=== PATIENT | male | born 1940 | race Caucasian/White ===

== ENCOUNTER → 2016-12-27 | Outpatient (CLI) | payer MEDICARE ==
--- NOTE | 2016-12-27 13:11 | MR ---
EXAMINATION TYPE: MR knee RT wo con DATE OF EXAM: 12/27/2016 COMPARISON: Plain film dated 12/08/2016 HISTORY: Rt knee pain TECHNIQUE: Multiplanar, multisequence imaging of the right knee is performed without IV contrast. FINDINGS: MEDIAL MENISCUS: Posterior horn of the medial meniscus shows linear increased signal which extends to the articular surface. Anterior horn also shows some linear increased signal which extends to the samia dy, there is pseudoextrusion of the medial meniscus. LATERAL MENISCUS: There is some linear increased signal involving the posterior horn of the lateral m eniscus which is thought to extend to the articular surface medially seen on sagittal image 22 and 23 . CRUCIATE LIGAMENTS: Some increased signal at the insertion of the anterior cruciate ligament could re present a partial tear or mucoid degeneration COLLATERAL LIGAMENTS: Popliteus tendon shows some increased signal associated with its substance, the re is thickening, suggests tendinosis or possibly partial tear. EXTENSOR MECHANISM: Visualized quadriceps and patellar tendons are intact. EFFUSION: Small suprapatellar joint effusion is present. POPLITEAL CYST: Small semimembranosus gastrocnemius cyst is present. TRICOMPARTMENT SPACES: Maintained CARTILAGE: Suspect some cartilage thinning superolaterally at the posterior patella the site of patie nt's lytic focus. Grade 2 to grade III chondromalacia present in the medial compartment. BONE MARROW SIGNAL: Abnormal signal is present in the superior lateral patella, there is a lytic focu s corresponding to that seen on plain film measuring approximately 15 mm in greatest dimension with s ome irregularity of the cortex superolaterally. There is mixed signal which is intermediate on T1, so me high in mixed lower signal present on T2-weighted sequences. OTHER: The origins of the gastrocnemius muscles show some fluid signal present, there may be strain or partial tear. Subcutaneous edema changes are present. IMPRESSION: Findings could be due to gout or possibly giant cell tumor, osteoblastoma. Tear of the medial meniscu s as described. Osteoarthritis may be present. Additional findings above.
== END | disposition home or self-care (01) ==
LOC: RADMRIMAIN 08:35
PROVIDERS: ATTEND Orthopaedic Surgery
DX: S83.241A Other tear of medial meniscus, current injury, right knee, initial encounter (principal)

== ENCOUNTER → 2017-01-07 | Outpatient (CLI) | payer MEDICARE ==
[2017-01-07 11:44] LABS: ALT 66 U/L (21-72); AST 37 U/L (17-59); Alkaline Phosphatase 68 U/L (38-126); Anion Gap 10 mmol/L; Blood Urea Nitrogen 18 mg/dL (9-20); Calcium 9.7 mg/dL (8.4-10.2); Carbon Dioxide 26 mmol/L (22-30); Chloride 104 mmol/L (98-107); Cholesterol 171 mg/dL (<200); Glucose 92 mg/dL (74-99); HDL Cholesterol 41 mg/dL (40-60); Non-African American GFR(MDRD) >60 (>60 ml/min/1.73 sqM); Potassium 4.5 mmol/L (3.5-5.1); Sodium 140 mmol/L (137-145); Total Bilirubin 0.6 mg/dL (0.2-1.3); Total Protein 6.8 g/dL (6.3-8.2); Uric Acid 5.6 mg/dL (3.5-8.5)
[2017-01-07 12:15] LABS: Prostate Specific Antigen 1.17 ng/mL (0.00-4.00)
[2017-01-07 12:25] LABS: Basophils % (A) 1 %; CH 33.9; CHCM 33.8; Eosinophils # (A) 0.2 k/uL (0-0.7); Eosinophils % (A) 4 %; HCT 47.6 % (39.0-53.0); HDW 2.57; Luc # (Auto) 0.21; Luc % (Auto) 4; Lymphocytes # (A) 1.2 k/uL (1.0-4.8); Lymphocytes % (A) 24 %; MCH 33.9 pg (25.0-35.0); MCHC 33.5 g/dL (31.0-37.0); Macrocytosis Slight; Mean Platelet Volume 7.6; Monocytes # (A) 0.4 k/uL (0-1.0); Monocytes % (A) 8 %; Neutrophils # (A) 2.9 k/uL (1.3-7.7); Neutrophils % (A) 59 %; RBC 4.72 m/uL (4.30-5.90); RDW 13.6 % (11.5-15.5); WBC (Perox) 5.29
[2017-01-07 14:07] LABS: Hemoglobin A1C 5.4 % (4.2-6.1)
--- NOTE | 2017-01-07 16:11 | NM ---
EXAMINATION TYPE: NM bone/joint limited DATE OF EXAM: 01/07/2017 COMPARISON: MRI knee dated 12/27/2016 HISTORY: Indeterminate right patellar lesion. TECHNIQUE: After the intravenous administration of 25.5 mCi Tc 99m MDP. Images acquired 3 hours pos t injection. Multiple views of knees are submitted. FINDINGS: There is asymmetric focal radiotracer uptake within the right patella at the previously donovan cribed abnormal area of bone marrow signal within the lateral patella and lytic lesion seen on the pl ain film measuring 15 mm in greatest dimension. This uptake is nonspecific and can be seen in infecti ous etiologies, neoplastic etiologies, or inflammatory etiologies. Additional more mild nonfocal bilateral uptake is seen within the knee joints representing degenerati ve change, likely osteoarthropathy although arthropathy from other causes such as gout are considerat ions. IMPRESSION: Focal asymmetric radiotracer uptake within the right patella which is nonspecific but cor responds to the known lytic lesion. Focal radiotracer uptake in the seen infectious etiologies, neopl astic etiologies, and inflammatory etiologies. Consult with orthopedic oncologist should be considere d with additional consideration for definitive diagnosis with percutaneous tissue sampling.
== END | disposition home or self-care (01) ==
LOC: RADNMMAIN 11:00
PROVIDERS: ATTEND Orthopaedic Surgery
DX: M79.661 Pain in right lower leg (principal); I48.2 Chronic atrial fibrillation; R73.09 Other abnormal glucose; E78.00 Pure hypercholesterolemia, unspecified; N40.0 Benign prostatic hyperplasia without lower urinary tract symptoms; M10.9 Gout, unspecified; Z00.00 Encounter for general adult medical examination without abnormal findings
CPT/HCPCS: 84439; 84153; 80061; 80053; 83036; 84443; 84550; 85025; 78300; 36415; A9503

== ENCOUNTER → 2018-10-30 | Outpatient (CLI) | payer MEDICARE ==
[2018-10-30 11:00] LABS: HGB 15.4 gm/dL (13.0-17.5); MCH 32.3 pg (25.0-35.0); MCHC 33.5 g/dL (31.0-37.0); MCV 96.4 fL (80.0-100.0); Mean Platelet Volume 7.4; Platelet Count 186 k/uL (150-450); RBC 4.77 m/uL (4.30-5.90); RDW 13.3 % (11.5-15.5); WBC 5.9 k/uL (3.8-10.6)
[2018-10-30 11:14] LABS: Potassium 4.1 mmol/L (3.5-5.1)
== END | disposition home or self-care (01) ==
LOC: LABPAT 10:18
PROVIDERS: ATTEND Internal Medicine Clinical Cardiac Electrophysiology
DX: Z01.812 Encounter for preprocedural laboratory examination (principal); I48.0 Paroxysmal atrial fibrillation; I49.5 Sick sinus syndrome
CPT/HCPCS: 36415; 80051; 82565; 82947; 84520; 85027

== ENCOUNTER 2018-11-07 13:39 | Day surgery (SDC) | payer MEDICARE ==
[2018-11-07] MEDS ORDERED: SODIUM CHLORIDE 0.9% 1,000 ML IV SCH (13:54)
[2018-11-07] MEDS ORDERED: LACTATED RINGERS 1,000 ML IV SCH (13:54)
[2018-11-07] MEDS ORDERED: HYDROmorphone 0.5 MG/0.5 ML SYRINGE IVP PRN (13:54)
[2018-11-07] MEDS ORDERED: MIDAZOLAM 2 MG/2 ML VIAL IV PRN (13:54)
[2018-11-07] MEDS ORDERED: ONDANSETRON 4 MG/2 ML VIAL ONE (15:15)
[2018-11-07] MEDS ORDERED: HEPARIN SODIUM,PORCINE 5,000 UNIT/ML 1 ML VIAL ONE (15:15)
[2018-11-07] MEDS ORDERED: ePHEDrine SULFATE/0.9% NACL/PF 50 MG/5 ML SYRINGE IV ONE (15:15)
[2018-11-07] MEDS ORDERED: MIDAZOLAM 2 MG/2 ML VIAL ONE (15:15)
[2018-11-07] MEDS ORDERED: PROTAMINE SULFATE 10 MG/ML 5 ML VIAL IV ONE (15:15)
[2018-11-07] MEDS ORDERED: ISOPROTERENOL 250 MCG/1.25 ML SYR IV ONE (15:15)
[2018-11-07] MEDS ORDERED: PROPOFOL 10 MG/ML 20 ML VIAL IV ONE (15:15)
[2018-11-07] MEDS ORDERED: PHENYLEPHRINE-0.9% NACL SYG 1 MG/10 ML SYRINGE ONE (15:15)
[2018-11-07] MEDS ORDERED: fentaNYL (PF) 50 MCG/ML 2 ML AMP ONE (15:15)
[2018-11-07] MEDS ORDERED: SUCCINYLCHOLINE CHLORIDE 100 MG/5 ML SYR IV ONE (15:15)
[2018-11-07] MEDS ORDERED: LIDOCAINE 1% INJ 10MG/ML (20 ML MDV) SQ ONE ×2 (16:00→16:06)
[2018-11-07] MEDS ORDERED: LIDOCAINE 1% INJ 10MG/ML (20 ML MDV) ONE (16:08)
[2018-11-07] MEDS ORDERED: HEPARIN SOD,PORK IN 0.45% NACL 25,000 UNIT in 0.45% NACL 1 250ML.BAG IV ONE (16:15)
[2018-11-07] MEDS ORDERED: IOPAMIDOL-370 100ML BTL INJ ONE (18:16)
[2018-11-07] MEDS ORDERED: ACETAMINOPHEN IV (For NPO) 1,000 MG in EMPTY BAG 1 BAG IVPB ONE (18:23)
[2018-11-07] MEDS ORDERED: ACETAMINOPHEN TAB 325 MG TAB PO PRN (18:23)
[2018-11-07] MEDS ORDERED: HYDROcodone/APAP 5-325MG 1 EACH TAB PO PRN (18:23)
--- NOTE | 2018-11-07 18:35 | P.HPCAR ---
History of Present Illness This is Dr. Messer dictating a consult on this patient The patient was interviewed and examined by me IMPRESSION / ASSESSMENT: Paroxysmal atrial fibrillation, drug refractory Intolerant of higher doses of flecainide Stable from a cardiac vascular standpoint no medical issues at this time that precludes proceeding with A. fib ablation today Hypertension, well controlled PLAN: Stable from a cardiovascular standpoint to proceed with an A. fib ablation cryoablation Discussed with the patient and he is agreeable to plan HPI Recurrent palpitations despite flecainide The dose of flecainide had to be reduced because of side effects from flecainide 100 mg twice daily initial symptoms no pulmonary symptoms no chest pain dizziness lightheadedness. Continues to have palpitations ROS: No fever chills or rigors, no cough, phlegm or expectoration, no nausea, vomiting or diarrhea, no hematuria, dysuria, no musculoskeletal complaints, no strokes or seizures, no skin lesions. EXAMINATION: Afebrile 98.1F, pulse rate in the 50s blood pressure 144/72 mmHg normal respirations No JVD Breath sounds are clear no rhonchi no crackles Normal heart sounds S1 normal S2 no murmurs. No rub Abdomen soft nontender Extremities are warm no edema REVIEW OF LABS, ECG & MEDICAL DATA Patient is sinus rhythm today irregular rhythm Prior labs within normal limits Physical Exam Vitals: Vital Signs Temp Pulse Resp BP Pulse Ox 11/07/18 14:26 98.1 F 59 L 16 145/72 95 Intake and Output 11/07/18 11/07/18 11/07/18 06:59 14:59 22:59 Intake Total 50 21 Balance 50 21 Intake: IV 50 21 Past Medical History Past Medical History: Atrial Fibrillation, Hypertension, Osteoarthritis (OA), Sleep Apnea/CPAP/BIPAP Additional Past Medical History / Comment(s): See Dr Messer's H&P,uses CPAP, kidney stones, benign prostatic hypertrophy, spondylolisthesis and sciatica right leg, proximal atrial fibrillation,gout History of Any Multi-Drug Resistant Organisms: None Reported Past Surgical History: Cardiac Ablation, Joint Replacement, Prostate Surgery Additional Past Surgical History / Comment(s): October 2018 4th toe left foot surgery,both hips replaced, TURP, vent and umb hernia repair Past Anesthesia/Blood Transfusion Reactions: No Reported Reaction Smoking Status: Former smoker - Past Family History Mother Family Medical History: No Reported History Additional Family Medical History / Comment(s): Mother at age 78 with history of rheumatic heart disease and from complications of this. Father Additional Family Medical History / Comment(s): Father at age 96 with history of hypertension. Brother(s) Additional Family Medical History / Comment(s): One brother at age 48 from a myocardial infarction with history of smoking. Physical Examination Vital Signs Temp Pulse Resp BP Pulse Ox 11/07/18 14:26 98.1 F 59 L 16 145/72 95 Intake and Output 11/07/18 11/07/18 11/07/18 06:59 14:59 22:59 Intake Total 50 21 Balance 50 21 Intake: IV 50 21 Results Current Medications Generic Name Dose Route Start Last Admin Trade Name Freq PRN Reason Stop Dose Admin Acetaminophen 650 mg 11/07/18 18:23 Tylenol Tab PO Q6HR PRN Mild Pain Hydrocodone Bitart/Acetaminophen 1 each 11/07/18 18:23 [place] 5-325 PO Q4HR PRN Moderate Pain Allopurinol 300 mg 11/08/18 09:00 Zyloprim PO DAILY ABDIAZIZ Flecainide Acetate 50 mg 11/08/18 09:00 Tambocor PO DAILY ABDIAZIZ HCTZ/Losartan Potassium 1 each 11/08/18 09:00 Hyzaar 50-12.5 PO QAM ABDIAZIZ Hydromorphone HCl 0.5 mg 11/07/18 13:54 Dilaudid IVP 11/08/18 13:55 Q5M PRN Pain Control Sodium Chloride 1,000 mls @ 20 mls/hr 11/07/18 13:54 11/07/18 14:23 Saline 0.9% IV 50 mls .Q24H ABDIAZIZ Administration Lactated Ringer's 1,000 mls @ 20 mls/hr 11/07/18 13:54 Lactated Ringers IV .Q24H ABDIAZIZ Acetaminophen 1,000 mg/ IV 100 mls @ 400 mls/hr 11/07/18 18:23 Solution IVPB 11/07/18 18:37 ONCE ONE Metoprolol Succinate 12.5 mg 11/08/18 09:00 Toprol Xl PO QAM ABDIAZIZ Midazolam HCl 2 mg 11/07/18 13:54 Versed IV 11/08/18 13:55 ONCE PRN Anxiety Rivaroxaban 20 mg 11/08/18 09:00 Xarelto PO DAILY ABDIAZIZ Sodium Chloride 12 ml 11/07/18 21:00 Saline Flush IV Q12HR ABDIAZIZ Intake and Output 11/07/18 11/07/18 11/07/18 06:59 14:59 22:59 Intake Total 50 21 Balance 50 21 Intake: IV 50 21
--- NOTE | 2018-11-07 18:51 | P.PCN ---
Preoperative Diagnosis: Diagnosis Atrial fibrillation, symptomatic, refractory to therapy Paroxysmal Result Successful pulmonary vein isolation of all veins using cryo-ablation Complete entrance block in all 4 veins confirmed No evidence for phrenic nerve injury Esophageal deflection YES Electrical cardioversion with a synchronized shock across the chest NO Procedure details Patient was brought to the EP lab in a fasting state. Written informed consent was obtained prior to the procedure. Procedure performed under general anesthesia After initial muscle relaxant use, muscle relaxants were not given thereafter in order to assess phrenic nerve during procedure. Patient prepped and draped as per protocol Full cryo-set up with standard preparation of the cryoablation tools done. Femoral Venous access obtained on the right and left groins Venous and arterial Sheaths placed. Diagnostic catheters for the high right atrium, phrenic nerve stimulation and pacing, His bundle, RV and coronary sinus placed Intracardiac echo catheter placed. Long sheath placed in the right atrium Left and right transseptal catheterization performed under intracardiac echo guidance. Intravenous heparin with aCT above 300 Later, catheter positioning and balloon positioning in the left atrium, under intracardiac echo guidance Diagnostic EP study with Drug infusion Coronary sinus pacing and recording Baseline measurements AH 59 HV 50 Atrial pacing performed from the high right atrium and the coronary sinus RV pacing MT interval 165 ms, QRS 97 ms, QT 476 ms Sinus node recovery time at 600 ms was 04/13/2000 milliseconds did correspondents corrected sinus node recovery time mildly prolonged AV node Wenckebach block for 70 ms On Isuprel VA Wenckebach block less than 390 ms Transseptal catheterization performed RA pressure 11/5/8 LA pressure 20/3/11 Transseptal catheterization performed with standard sheath. The cryoablation sheath was then placed with an over the wire exchange without any acute complications. All 4 pulmonary veins were isolated in the following sequence: Left superior followed by left inferior followed by right superior followed by right inferior The cryo-ablation balloon was placed at the os of each vein 1.5 mL of IV dye was injected to confirm an occluded vein Goal during cryoablation was to achieve complete occlusion of the pulmonary vein, achieve -30 degrees C at 30 seconds and achieve -40 degrees C at 60 seconds and a time to effect of less than 60-90 seconds, . If not the balloon was repositioned to obtain this result After completion of Cryoblation with durations from 180-240 seconds, entrance block was confirmed with the Attain circular catheter in a roving fashion around the antrum of the pulmonary veins Phrenic nerve pacing was performed from the SVC, right innominate vein area and diaphragm voltage was monitored. Diaphragmatic contractions were also monitored manually for strength of contraction. Parameter goals for each cryo freeze Complete occlusion of the appropriate vein -30 degrees C by 30 seconds -40 degrees C by 60 seconds Minimum between minus 40-55 degrees C Thaw time greater than 10 seconds Balloon visualized by intracardiac echo The esophagus was intubated. Esophageal Temperature monitoring with a CIRCA catheter formed. Esophageal deflection for hypothermia of the esophagus below 30 degrees C Left superior pulmonary vein Complete isolation, entrance block Left inferior pulmonary vein Complete isolation, entrance block Right superior pulmonary vein, during phrenic nerve pacing Complete isolation, entrance block Right inferior pulmonary vein, during phrenic nerve pacing Complete isolation, entrance block At the end of the procedure the Achieve catheter was once again used to check for entrance block Phrenic nerve stimulation was performed to confirm diaphragmatic stimulation the end of the procedure Cine fluoroscopy was performed at the very end of the procedure to confirm movement of both diaphragms with inspiration and expiration At the end of the procedure the patient was extubated Heparin was reversed Venous sheaths were removed and hemostasis assured Procedures performed (PVI - CRYO Ablation) Diagnostic EP study CS pacing and recording Left and right transseptal catheterization Catheter the mapping of the tachycardia (NOT 3D mapping) Intracardiac echocardiography Pulmonary vein isolation with transseptal and comprehensive EPS, [id number] Drug Infusion [id number]
[2018-11-07 20:45] VITALS: BMI 28.4
[2018-11-07 21:04] LABS: INR 1.2 (<1.2); Prothrombin Time 12.5 sec (9.0-12.0)
[2018-11-08] MEDS ORDERED: BENZOCAINE/MENTHOL LOZENG 1 EACH LOZENGE MUCOUS MEM PRN (03:23)
--- NOTE | 2018-11-08 07:43 | P.DS ---
Providers Attending physician: Hernandez Messer Primary care physician: [facility] Course: Patient is doing well. He has a sore throat and some bloating sensation in the belly but he denies any chest discomfort dizziness lightheadedness or palpitations. He is ambulating in the room His groins of healed well is no tenderness no hematoma no swelling On examination heart sounds are regular and normal normal S1 normal S2 no murmurs or gallops or rub Breath sounds are clear no rhonchi no crackles no adventitious sounds Abdomen soft nontender No hepatojugular reflux Blood pressure 132/74 mmHg, pulse rate in the 70s, afebrile 97.9F He is using CPAP mask at night Impression Paroxysmal atrial fibrillation, refractory to therapy Intolerant of higher doses of flecainide on account of bradycardia Sick Sinus Syndrome and first-degree AV block Obstructive sleep apnea Hypertension, controlled Twelve-lead ECG today shows sinus rhythm with first-degree AV block Suggest Ambulate in the hallways continue xarelto and other cardiac medications No change in medications for now Discharge home by 5 PM today if stable and follow with Dr. Escobar within a week Plan - Discharge Summary Discharge Rx Participant: No New Discharge Prescriptions: Continue Rivaroxaban [Xarelto] 20 mg PO DAILY Metoprolol Succinate [Toprol XL] 12.5 mg PO QAM Flecainide [Tambocor] 50 mg PO DAILY Losartan/Hydrochlorothiazide [Hyzaar 50-12.5 Tablet] 1 each PO QAM Multivit-Min/FA/Lycopen/Lutein [Centrum Silver Men Tablet] 1 tab PO DAILY Allopurinol [Zyloprim] 300 mg PO DAILY Indomethacin [Indocin] 50 mg PO BID PRN PRN Reason: gout Discharge Medication List Flecainide [Tambocor] 50 mg PO DAILY 05/09/15 [History] Losartan/Hydrochlorothiazide [Hyzaar 50-12.5 Tablet] 1 each PO QAM 05/09/15 [History] Metoprolol Succinate [Toprol XL] 12.5 mg PO QAM 05/09/15 [History] Rivaroxaban [Xarelto] 20 mg PO DAILY 05/09/15 [History] Allopurinol [Zyloprim] 300 mg PO DAILY 11/06/18 [History] Indomethacin [Indocin] 50 mg PO BID PRN 11/06/18 [History] Multivit-Min/FA/Lycopen/Lutein [Centrum Silver Men Tablet] 1 tab PO DAILY 11/06/18 [History] Follow up Appointment(s)/Referral(s): Hernandez Messer MD [STAFF PHYSICIAN] - 1 Week (follow up with Dr. Messer/Halie Stockton/Chery Garcia in one week) Activity/Diet/Wound Care/Special Instructions: Post EP study - Ablation instructions 1. Keep access sites dry for 2 days. 2. No heavy lifting or straining for 2 days. 3. Avoid bending the hips repeatedly for 2 days. 4. You may go up and down stairs slowly Call if the following is noted 1. Bleeding, increasing swelling or pain at the access sites. 2. Increasing chest discomfort, especially upon taking a deep breath. 3. Increasing shortness of breath, at rest or with exertion. 4. Undue cough / phlegm 5. Difficulty or pain while swallowing. 6. Pain or change in color in the extremities. 7. Fever, chills, rigors. 8. Increasing headache or neurologic symptoms. 9. Dizziness, fainting, palpitations Antinea all of her cardiac medications including flecainide and Xarelto
--- NOTE | 2018-11-08 07:49 | P.PRLE ---
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 He will continue all his cardiac medications for now without any changes in a follow-up with you as well as myself as previously scheduled Thank you for entrusting me with the care of the patient Warm regards Sincerely Hernandez Messer
[2018-11-08] MEDS ORDERED: RIVAROXABAN 20 MG TAB PO SCH (09:00)
[2018-11-08] MEDS ORDERED: LOSARTAN-HCTZ 50-12.5 MG 1 EACH TAB PO SCH (09:00)
[2018-11-08] MEDS ORDERED: METOPROLOL SUCCINATE (ER) 25 MG TAB.ER.24H PO SCH (09:00)
[2018-11-08] MEDS ORDERED: FLECAINIDE 50 MG TAB PO SCH (09:00)
[2018-11-08] MEDS ORDERED: ALLOPURINOL 300 MG TAB PO SCH (09:00)
[2018-11-08 15:56] VITALS: BP 126/72; PULSE 60; RESP 16; TEMP 98.3
== END 2018-11-08 17:30 | disposition home or self-care (01) ==
LOC: CATHEP 13:39 → 1SOBS 18:19 → CATHEP 11-08 17:30
PROVIDERS: ATTEND Internal Medicine Clinical Cardiac Electrophysiology
DX: I48.0 Paroxysmal atrial fibrillation (principal); I10 Essential (primary) hypertension; M19.90 Unspecified osteoarthritis, unspecified site; G47.33 Obstructive sleep apnea (adult) (pediatric); Z99.89 Dependence on other enabling machines and devices; N40.0 Benign prostatic hyperplasia without lower urinary tract symptoms; Z87.891 Personal history of nicotine dependence; M43.10 Spondylolisthesis, site unspecified; M54.31 Sciatica, right side; M10.9 Gout, unspecified; Z96.643 Presence of artificial hip joint, bilateral; Z87.442 Personal history of urinary calculi; Z82.49 Family history of ischemic heart disease and other diseases of the circulatory system; Z79.01 Long term (current) use of anticoagulants; Z79.899 Other long term (current) drug therapy; Z88.2 Allergy status to sulfonamides; Z91.09 Other allergy status, other than to drugs and biological substances
CPT/HCPCS: 85347; 93623; 93662; 93609; 93656; 85610; C1769 ×4; C1894 ×2; C1730 ×2; C1893; C1733; C1766; J2250; J2720; J1644 ×2; J2405; J2001; J3010; J2370; J0330; J2704; Q9967

== ENCOUNTER 2019-09-02 15:50 | Emergency (ER) | payer MEDICARE ==
[2019-09-02 15:57] VITALS: TEMP 98.1
[2019-09-02] MEDS ORDERED: METOCLOPRAMIDE 5 MG/ML 2 ML VIAL IM STA (16:37)
[2019-09-02] MEDS ORDERED: NITROGLYCERIN SL TABS 0.4 MG TAB SUBLINGUAL STA (16:37)
[2019-09-02] MEDS ORDERED: GLUCAGON 1 MG/ML VIAL IVP STA (16:38)
--- NOTE | 2019-09-02 16:40 | ED ---
General Adult HPI - General Chief complaint: Skin/Abscess/Foreign Body Stated complaint: food stuck in throat Time Seen by Provider: 09/02/19 16:09 Source: patient, RN notes reviewed Mode of arrival: ambulatory Limitations: no limitations - History of Present Illness Initial comments: Patient is a pleasant 78-year-old male presenting to the emergency Department with complaints of concerns for sausage stuck in his throat since around 10:00. Patient has not been able to tolerate oral intake of fluids since that time. Patient is a retired physician. Patient denies any dyspnea. Patient has had some milder symptoms previously however usually is able to clear himself with a half an hour. Patient has had previous scope showing reflux however has not needed scope for esophageal foreign body. - Related Data Home Medications Medication Instructions Recorded Confirmed Flecainide [Tambocor] 50 mg PO DAILY 05/09/15 11/07/18 Losartan/Hydrochlorothiazide 1 each PO QAM 05/09/15 11/07/18 [Hyzaar 50-12.5 Tablet] Metoprolol Succinate [Toprol XL] 12.5 mg PO QAM 05/09/15 11/07/18 Rivaroxaban [Xarelto] 20 mg PO DAILY 05/09/15 11/07/18 Allopurinol [Zyloprim] 300 mg PO DAILY 11/06/18 11/07/18 Indomethacin [Indocin] 50 mg PO BID PRN 11/06/18 11/07/18 Multivit-Min/FA/Lycopen/Lutein 1 tab PO DAILY 11/06/18 11/07/18 [Centrum Silver Men Tablet] Allergies Allergy/AdvReac Type Severity Reaction Status Date / Time Sulfa (Sulfonamide Allergy Rash/Hives Verified 09/02/19 15:57 Antibiotics) adhesive on monitor stickers Allergy irritated Uncoded 09/02/19 15:57 skin Review of Systems ROS Statement: Those systems with pertinent positive or pertinent negative responses have been documented in the HPI. ROS Other: All systems not noted in ROS Statement are negative. Constitutional: Denies: fever Eyes: Denies: eye pain ENT: Denies: ear pain Respiratory: Reports: as per HPI Cardiovascular: Denies: chest pain Endocrine: Denies: fatigue Gastrointestinal: Reports: as per HPI, nausea Genitourinary: Denies: dysuria Musculoskeletal: Denies: back pain Skin: Denies: rash Neurological: Denies: weakness Past Medical History Past Medical History: Atrial Fibrillation, Hypertension, Osteoarthritis (OA), Sleep Apnea/CPAP/BIPAP Additional Past Medical History / Comment(s): See Dr Messer's H&P,uses CPAP, kidney stones, benign prostatic hypertrophy, spondylolisthesis and sciatica right leg, proximal atrial fibrillation,gout History of Any Multi-Drug Resistant Organisms: None Reported Past Surgical History: Cardiac Ablation, Joint Replacement, Prostate Surgery Additional Past Surgical History / Comment(s): October 2018 4th toe left foot surgery,both hips replaced, TURP, vent and umb hernia repair Past Anesthesia/Blood Transfusion Reactions: No Reported Reaction Past Psychological History: No Psychological Hx Reported Smoking Status: Former smoker Past Alcohol Use History: None Reported Past Drug Use History: None Reported - Past Family History Mother Family Medical History: No Reported History Additional Family Medical History / Comment(s): Mother at age 78 with history of rheumatic heart disease and from complications of this. Father Additional Family Medical History / Comment(s): Father at age 96 with history of hypertension. Brother(s) Additional Family Medical History / Comment(s): One brother at age 48 from a myocardial infarction with history of smoking. General Exam Limitations: no limitations General appearance: alert, in no apparent distress Head exam: Present: normocephalic Eye exam: Present: normal appearance ENT exam: Present: normal oropharynx Respiratory exam: Present: normal lung sounds bilaterally Cardiovascular Exam: Present: regular rate, normal rhythm GI/Abdominal exam: Present: soft. Absent: tenderness Extremities exam: Present: normal inspection Neurological exam: Present: alert Psychiatric exam: Present: normal affect, normal mood Skin exam: Present: normal color Course Vital Signs 09/02/19 09/02/19 15:53 17:35 Temperature 98.1 F Pulse Rate 68 75 Respiratory 20 18 Rate Blood Pressure 157/89 142/83 O2 Sat by Pulse 98 97 Oximetry - Reevaluation(s) Reevaluation #1: 09/02/19 17:30 No improvement with glucagon. Case discussed with Dr. Pérez who will come in to perform endoscopy 09/02/19 18:12 After a short period patient did feel like foreign body sensation cleared. Patient is now able tolerate liquids without any difficulty. Disposition Clinical Impression: Esophageal foreign body Disposition: HOME SELF-CARE Condition: Stable Instructions (If sedation given, give patient instructions): Esophageal Foreign Body (ED) Additional Instructions: Continue use of your PPI daily. Please follow-up with primary care physician in the next day or 2 for recheck. Also follow-up with GI. You will likely need endoscopy done within the next week or 2. Liquid diet today. Soft diet tomorrow. Return for any difficulty breathing, not tolerating oral intake, worsening or changing symptoms or other concerns. Is patient prescribed a controlled substance at d/c from ED?: No Referrals: Dagoberto Gupta MD [Primary Care Provider] - 1-[address]iz MD [STAFF PHYSICIAN] - 1-2 days Time of Disposition: 18:15
[2019-09-02] MEDS ORDERED: METOCLOPRAMIDE 5 MG/ML 2 ML VIAL IVP STA (16:55)
[2019-09-02 17:38] VITALS: BP 142/83; PULSE 75; RESP 18
== END 2019-09-02 18:33 | disposition home or self-care (01) ==
LOC: EC 15:50
DX: T18.128A Food in esophagus causing other injury, initial encounter (principal); I10 Essential (primary) hypertension; M19.90 Unspecified osteoarthritis, unspecified site; M10.9 Gout, unspecified; I48.0 Paroxysmal atrial fibrillation; G47.30 Sleep apnea, unspecified; Z99.89 Dependence on other enabling machines and devices; Z87.891 Personal history of nicotine dependence; Z96.643 Presence of artificial hip joint, bilateral; Z98.890 Other specified postprocedural states; Z88.2 Allergy status to sulfonamides; Z91.048 Other nonmedicinal substance allergy status; Z79.01 Long term (current) use of anticoagulants; Z79.1 Long term (current) use of non-steroidal anti-inflammatories (NSAID); Z79.899 Other long term (current) drug therapy
CPT/HCPCS: 99283; 96374; 96375; J1610; J2765

== ENCOUNTER → 2020-04-01 | Outpatient (CLI) | payer MEDICARE ==
--- NOTE | 2020-04-01 10:58 | CT ---
EXAMINATION TYPE: CT pelvis w con DATE OF EXAM: 04/01/2020 COMPARISON: May 12, 2015 HISTORY: Unilateral inguinal hernia, without obstruction CT DLP: 1398.70 mGycm CONTRAST: CT scan of the pelvis is performed with Oral Contrast and with IV Contrast, patient injected with 100 ml mL of Isovue 300. FINDINGS: There is severe degenerative disc disease at L3-4 and L4-5 with grade 1 anterolisthesis of bowel 4 an d L5 of 4 mm. Severe facet joint arthropathy noted. Bilateral hip prostheses are in place with acetabular and femoral components appearing well seated. N o CT evidence to suggest prosthetic loosening or periprosthetic infection. There is a large spur rabia ing from the superior acetabular region on the left which may result in femoral acetabular impingemen t. Correlate clinically. The piriformis musculature appears symmetric bilaterally without evidence for piriformis syndrome. Fat-containing left inguinal hernia small in size. Urinary bladder is of normal caliber without wall thickening. Simple appearing cyst lower pole left kidney measuring 1 cm. Distal abdominal aorta and i liac vessels are patent. IMPRESSION: 1. Correlate for left-sided femoral acetabular impingement. 2. Severe degenerative change lumbar spine is noted. 3. Bilateral hip prostheses are intact and well seated. No evidence for piriformis syndrome at this t herman.
== END | disposition home or self-care (01) ==
LOC: RADCTMAIN 08:18
PROVIDERS: ATTEND Surgery
DX: K40.91 Unilateral inguinal hernia, without obstruction or gangrene, recurrent (principal); Z96.643 Presence of artificial hip joint, bilateral
CPT/HCPCS: 82565; 84520; 72193; 36415; Q9967

== ENCOUNTER → 2020-09-01 | Outpatient (CLI) | payer MEDICARE ==
[2020-09-01 10:11] LABS: HCT 45.4 % (39.0-53.0); HGB 15.5 gm/dL (13.0-17.5); MCH 34.1 pg (25.0-35.0); MCHC 34.2 g/dL (31.0-37.0); MCV 99.8 fL (80.0-100.0); Mean Platelet Volume 8.1; Platelet Count 142 k/uL (150-450); RBC 4.55 m/uL (4.30-5.90); RDW 13.2 % (11.5-15.5); WBC 5.8 k/uL (3.8-10.6)
[2020-09-01 10:19] LABS: African American GFR (CKD) >90 (>60 ml/min/1.73 sqM); Anion Gap 6 mmol/L; Blood Urea Nitrogen 13 mg/dL (9-20); Carbon Dioxide 28 mmol/L (22-30); Chloride 106 mmol/L (98-107); Non-African American GFR(CKD) 82 (>60 ml/min/1.73 sqM); Potassium 4.4 mmol/L (3.5-5.1); Sodium 140 mmol/L (137-145)
[2020-09-01 14:35] LABS: Chol/HDL Ratio 3.97; Cholesterol 151 mg/dL (0-200); LDL Cholesterol,Calculated 84.4 mg/dL (0.0-131.0)
[2020-09-01 20:34] LABS: Hemoglobin A1C 5.4 % (4.0-6.0)
== END | disposition home or self-care (01) ==
LOC: LABPAT 08:52
PROVIDERS: ATTEND Internal Medicine
DX: Z01.818 Encounter for other preprocedural examination (principal); I25.10 Atherosclerotic heart disease of native coronary artery without angina pectoris
CPT/HCPCS: 36415; 80051; 80061; 82565; 83036; 84520; 85027

== ENCOUNTER → 2020-09-04 | Day surgery (SDC) | payer MEDICARE ==
[2020-09-02 15:40] VITALS: BMI 30.4
[~2020-09-04] MED LIST: ALPRAZolam 0.25 MG TAB PO PRN; ALPRAZolam 0.5 MG TAB PO PRN; ASPIRIN 325 MG TAB PO ONE; ATORVASTATIN 80 MG TAB PO ONE; HEPARIN SODIUM,PORCINE 10,000 UNIT in SODIUM CHLORIDE 0.9% 1,000 ML IRRIGATION PRN; HEPARIN SODIUM,PORCINE 2,500 UNIT in SODIUM CHLORIDE 0.9% 250 ML IRRIGATION PRN; IOPAMIDOL-370 100ML BTL INJ ONE; NITROGLYCERIN SL TABS 0.4 MG TAB SUBLINGUAL ONE; NITROGLYCERIN SL TABS 0.4 MG TAB SUBLINGUAL PRN; SODIUM CHLORIDE 0.9% 1,000 ML IV SCH; SODIUM CHLORIDE 0.9% 1,000 ML in EMPTY BAG 1 BAG IV ONE; VERAPAMIL SYRINGE (5 MG/10 ML) INTRAARTER ONE
[2020-09-04 07:10] VITALS: RESP 16; TEMP 97.1
[2020-09-04] MEDS: MIDAZOLAM 2 MG/2 ML VIAL IVP ONE ×4 (07:46→08:15)
[2020-09-04] MEDS: LIDOCAINE 1% INJ 10MG/ML (20 ML MDV) SQ ONE ×2 (07:49→07:59)
--- NOTE | 2020-09-04 12:00 | CC ---
CARDIAC CATHETERIZATION REPORT DATE OF SERVICE: 09/04/2020 PROCEDURE: Left heart catheterization and coronary angiography. PERFORMED BY: Dr. Tasha Mancini. Moderate conscious sedation time was 37 minutes. Patient was administered Versed. Oxygen saturation, hemodynamics and EKG were monitored closely. 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 He had noncritical CAD about 9 years ago. He was advised cardiac cath after due discussion by Dr. Messer. I saw the patient this morning, reviewed with him the rationale, risks, benefits, options. He understood all details and wished to proceed with the procedure. PROCEDURE NOTE: Under strict aseptic precautions and local anesthesia, I attempted access from the right radial. I had good blood return, but could not advance the wire. I placed a sheath; however, there was some note of discomfort. I took the sheath out and applied manual pressure and then applied a TR band. The patient's oxygen saturation of the fingers of the right hand was 95%. I switched over to the femoral approach. Under local anesthesia and strict aseptic precautions, using micropuncture needle technique a 6-Welsh introducer was placed in the right femoral artery. Using a JL4.5 and JR4 catheters, I performed coronary angiography and a pigtail catheter was used to check LV pressures, but LV gram was not performed. The sheath was taken out and Angio-Seal device used to secure hemostasis and he was sent to the room in stable condition. The results were discussed with the patient and his . CARDIAC CATHETERIZATION FINDINGS: The left ventricular end-diastolic pressure was about 13 mmHg without any gradient across aortic valve. CORONARY ANGIOGRAPHY FINDINGS: LEFT MAIN CORONARY ARTERY: Short patent disease-free vessel that bifurcates into LAD and circumflex. No significant disease. LEFT ANTERIOR DESCENDING CORONARY ARTERY: Good caliber vessel, gives off a large diagonal branch very proximally that runs laterally. Mid LAD has minor irregularities of no more than 30% to 35%. LAD is a decent caliber decent distribution vessel has minor irregularities. LEFT POSTERIOR CIRCUMFLEX CORONARY ARTERY: Technically this is a codominant vessel gives off a high first obtuse marginal and distally gives off a posterolateral branch. There are minor irregularities. No significant disease in the codominant circumflex system. RIGHT CORONARY ARTERY: This is technically a codominant vessel gives off the PDA, which is of fair caliber distribution of small PLV. Right coronary artery has minor irregularities, no significant disease. LEFT VENTRICULOGRAM: Left ventriculogram was not performed. FINAL IMPRESSION: This patient has a codominant/right-dominant system. No significant obstructive coronary artery disease. Normal filling pressures without any gradient across aortic valve. RECOMMENDATIONS: Findings were discussed with the patient and . I expect he will be discharged today. I also talked to Dr. Messer. This patient has no obstructive CAD of significance. Continue medical therapy and risk factor modification. He will be discharged later today and will see Dr. Messer in one week. MMODL / IJN: [id number] /
[2020-09-04 16:29] VITALS: BP 164/71; PULSE 50
== END ==
LOC: CATHCVL 06:13
PROVIDERS: ATTEND Internal Medicine Interventional Cardiology
DX: I25.110 Atherosclerotic heart disease of native coronary artery with unstable angina pectoris (principal); I10 Essential (primary) hypertension; E78.00 Pure hypercholesterolemia, unspecified; E78.5 Hyperlipidemia, unspecified; I48.0 Paroxysmal atrial fibrillation; I73.9 Peripheral vascular disease, unspecified; Z72.0 Tobacco use; Z79.01 Long term (current) use of anticoagulants; Z79.899 Other long term (current) drug therapy; Z88.2 Allergy status to sulfonamides
CPT/HCPCS: 93458; C1760; C1769 ×4; C1894; J2250; J2001; Q9967

== ENCOUNTER → 2020-12-19 | Outpatient (CLI) | payer MEDICARE ==
[2020-12-19 23:21] LABS: Basophils # (A) 0.02 X 10*3/uL (0.00-0.10); Basophils % (A) 0.3 %; Eosinophils # (A) 0.25 X 10*3/uL (0.04-0.35); Eosinophils % (A) 3.9 %; HCT 42.4 % (39.6-50.0); HGB 14.3 g/dL (13.0-17.0); Lymphocytes # (A) 0.98 X 10*3/uL (0.90-5.00); Lymphocytes % (A) 15.1 %; MCH 34.5 pg (27.0-32.0); MCHC 33.7 g/dL (32.0-37.0); MCV 102.2 fL (80.0-97.0); Mean Platelet Volume 11.3 fL (9.5-12.2); Monocytes # (A) 0.68 X 10*3/uL (0.20-1.00); Monocytes % (A) 10.5 %; Neutrophils # (A) 4.52 X 10*3/uL (1.80-7.70); Neutrophils % (A) 69.9 %; Platelet Count 138 X 10*3/uL (140-440); RBC 4.15 X 10*6/uL (4.40-5.60); RDW 13.3 % (11.5-14.5); WBC 6.47 X 10*3/uL (4.50-10.00)
[2020-12-20 02:46] LABS: Hemoglobin A1C 5.3 % (4.0-6.0)
[2020-12-20 05:26] LABS: African American GFR (CKD) 73.6 (60.0-200.0); Albumin 4.6 g/dL (3.80-4.90); Albumin/Globulin Ratio 2.56 (1.60-3.17); Anion Gap 10.7 mmol/L (4.00-12.00); BUN/Creat Ratio 17.27 Ratio (12.00-20.00); Calcium 9.5 mg/dL (8.7-10.3); Carbon Dioxide 23.3 mmol/L (21.6-31.8); Chol/HDL Ratio 2.58; Globulin 1.8 g/dL (1.6-3.3); LDL Cholesterol,Calculated 36.8 mg/dL (0.0-131.0); Non-African American GFR(CKD) 63.5 (60.0-200.0); Potassium 4.8 mmol/L (3.5-5.5); Total Bilirubin 0.5 mg/dL (0.3-1.2); Total Protein 6.4 g/dL (6.2-8.2); VLDL Calculation 20.2 mg/dL (5.00-40.00)
[2020-12-20 05:48] LABS: T4, Free (Free Thyroxine) 1.1 ng/dL (0.80-1.80)
== END | disposition home or self-care (01) ==
LOC: LABWHC1 15:03
PROVIDERS: ATTEND Internal Medicine Geriatric Medicine
DX: I48.0 Paroxysmal atrial fibrillation (principal); E78.2 Mixed hyperlipidemia; R73.9 Hyperglycemia, unspecified
CPT/HCPCS: 36415; 80053; 80061; 83036; 84439; 84443; 85025

== ENCOUNTER → 2021-07-10 | Outpatient (CLI) | payer MEDICARE ==
--- NOTE | 2021-07-10 17:27 | CT ---
EXAMINATION TYPE: CT angio abdomen pelvis DATE OF EXAM: 07/10/2021 INDICATION: c/o abdominal pain CT DLP: 1355.1 mGy.cm Automated Exposure Control for Dose Reduction was Utilized. TECHNIQUE AND CONTRAST: CT scan of the abdomen and pelvis is performed without and with IV Contrast, as per CTA of the abdome n. The patient was injected with 100 mL of Isovue 370. 3-D and MIP reconstruction images were generat ed on an independent workstation and reviewed. COMPARISON: CT dated 05/12/2015 FINDINGS: Scattered arterial atherosclerotic calcification. Dilated ascending aorta measuring 4.6 cm. Cardiomeg cyndy. Arterial atherosclerotic calcifications. Moderate stenosis of the origin of the celiac trunk yet patent distally. Ectasia of the celiac trunk bifurcation measuring up to 11 mm. Mild stenosis of the origin of the superior mesenteric artery yet patent distally. Opacified inferior mesenteric artery. Single renal artery supplying each kidney with significant sten osis of the origin of the left renal artery. Otherwise normal caliber and enhancement of the visualiz ed abdominal and pelvic arteries without other significant stenosis, occlusion, dissection or aneurys m. Unremarkable liver. Cholelithiasis without evidence of acute cholecystitis. Unremarkable spleen and a drenals. Atrophic pancreas. No gross renal abnormality. The urinary bladder, prostate and seminal ves icles are obscured by artifacts from hip prosthesis. Unremarkable undistended stomach. Duodenal diver ticulum, otherwise unremarkable duodenum and small bowel. Colonic diverticulosis without evidence of acute diverticulitis. Fecal loading of the colon. Normal appendix. Left fat-containing inguinal hernia. Fat-containing umbilical hernia. No suspicious lymphadenopathy or sizable ascites. Bilateral basal pulmonary peripheral reticulations. Bilateral tot al hip arthroplasty. Degenerative changes of the lower thoracic and lumbar spine. Grade 1 anterolisth esis of L4 over L5 with severe bilateral L4-5 facet osteoarthropathy. Spinal canal stenosis is also s een at L4-5 level. IMPRESSION: 1. 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 2. Ascending aortic aneurysm measuring up to 4.6 cm. 3. Cholelithiasis without evidence of acute cholecystitis. Other incidental findings as detailed abov e.
== END | disposition home or self-care (01) ==
LOC: RADCTMAIN 14:04
PROVIDERS: ATTEND Internal Medicine Geriatric Medicine
DX: I25.10 Atherosclerotic heart disease of native coronary artery without angina pectoris (principal); I71.2 Thoracic aortic aneurysm, without rupture; K80.20 Calculus of gallbladder without cholecystitis without obstruction
CPT/HCPCS: 74174; Q9967

== ENCOUNTER → 2022-01-05 | Outpatient (CLI) | payer MEDICARE ==
[2022-01-05 14:17] LABS: HCT 43.2 % (39.6-50.0); HGB 14.5 g/dL (13.0-17.0); MCH 34.2 pg (27.0-32.0); MCHC 33.6 g/dL (32.0-37.0); MCV 101.9 fL (80.0-97.0); Mean Platelet Volume 10.4 fL (9.5-12.2); NRBC Per 100 WBC 0 /100 WBCS (0.0-0.0); Platelet Count 119 X 10*3/uL (140-440); RBC 4.24 X 10*6/uL (4.40-5.60); RDW 13.3 % (11.5-14.5); WBC 3.75 X 10*3/uL (4.50-10.00)
[2022-01-05 14:30] LABS: Anion Gap 9.6 mmol/L (10.00-18.00); Blood Urea Nitrogen 11.9 mg/dL (9.0-27.0); Carbon Dioxide 25.4 mmol/L (20.0-27.5); Non-African American GFR(CKD) 70.8 (60.0-200.0); Potassium 4.1 mmol/L (3.5-5.5)
== END ==
LOC: LABWHC1 09:17
PROVIDERS: ATTEND Internal Medicine Clinical Cardiac Electrophysiology
DX: Z01.812 Encounter for preprocedural laboratory examination (principal); I48.0 Paroxysmal atrial fibrillation; I47.2 Ventricular tachycardia; I49.5 Sick sinus syndrome
CPT/HCPCS: 36415; 80051; 82565; 84520; 85027

== ENCOUNTER 2022-02-04 08:23 | Day surgery (SDC) | payer MEDICARE ==
[2022-02-02 15:57] VITALS: BMI 30.1
[~2022-02-04 08:23] MED LIST changes: -ALPRAZolam 0.25 MG TAB PO PRN; -ALPRAZolam 0.5 MG TAB PO PRN; -ASPIRIN 325 MG TAB PO ONE; -ATORVASTATIN 80 MG TAB PO ONE; -HEPARIN SODIUM,PORCINE 10,000 UNIT in SODIUM CHLORIDE 0.9% 1,000 ML IRRIGATION PRN; -HEPARIN SODIUM,PORCINE 2,500 UNIT in SODIUM CHLORIDE 0.9% 250 ML IRRIGATION PRN; -IOPAMIDOL-370 100ML BTL INJ ONE; +LACTATED RINGERS 1,000 ML IV SCH; -NITROGLYCERIN SL TABS 0.4 MG TAB SUBLINGUAL ONE; -NITROGLYCERIN SL TABS 0.4 MG TAB SUBLINGUAL PRN; -SODIUM CHLORIDE 0.9% 1,000 ML in EMPTY BAG 1 BAG IV ONE; -VERAPAMIL SYRINGE (5 MG/10 ML) INTRAARTER ONE
[2022-02-04] MEDS ORDERED: SODIUM CHLORIDE 0.9% 1,000 ML IV ONE (08:35)
[2022-02-04] MEDS ORDERED: SUCCINYLCHOLINE CHLORIDE 200 MG/10 ML VIAL IV ONE (09:36)
[2022-02-04] MEDS ORDERED: HEPARIN SODIUM,PORCINE 10,000 UNIT/ML 1 ML VIAL ONE (09:36)
[2022-02-04] MEDS ORDERED: ROCURONIUM 10 MG/ML (5 ML VIAL) IV ONE (09:36)
[2022-02-04] MEDS ORDERED: ePHEDrine 50 MG/ML 1 ML VIAL ONE (09:36)
[2022-02-04] MEDS ORDERED: FUROSEMIDE 10 MG/ML 2 ML VIAL ONE (09:36)
[2022-02-04] MEDS ORDERED: ISOPROTERENOL 250 MCG/1.25 ML SYR IV ONE (09:36)
[2022-02-04] MEDS ORDERED: LIDOCAINE 2% INJ 20 MG/ML (2 ML VIAL) ONE (09:36)
[2022-02-04] MEDS ORDERED: MIDAZOLAM 2 MG/2 ML VIAL ONE (09:36)
[2022-02-04] MEDS ORDERED: PROPOFOL 10 MG/ML 20 ML VIAL IV ONE (09:36)
[2022-02-04] MEDS ORDERED: fentaNYL (PF) 50 MCG/ML 2 ML AMP ONE (09:36)
[2022-02-04] MEDS ORDERED: HEPARIN SOD,PORK IN 0.45% NACL 25,000 UNIT in 0.45% NACL 1 250ML.BAG IV ONE (09:51)
[2022-02-04] MEDS ORDERED: HEPARIN SODIUM (1,000 UNIT/ML) 1,000 UNIT in SODIUM CHLORIDE 0.9% 1,000 ML IRRIGATION ONE (09:51)
[2022-02-04] MEDS ORDERED: LIDOCAINE 1% INJ 10MG/ML (30 ML VIAL-PF) SQ ONE ×2 (10:17)
[2022-02-04] MEDS ORDERED: IOPAMIDOL-370 100ML BTL INJ ONE (12:00)
--- NOTE | 2022-02-04 14:36 | P.EPPROC ---
- EP Procedure Note Electrophysiology Procedure Note: This is Dr. Messer dictating an H/P on this patient The patient was interviewed and examined IMPRESSION / ASSESSMENT: Recurrent palpitations Paroxysms of atrial fibrillation symptomatic, with RVR Family flecainide as well as nonsustained VT on flecainide Failed Multaq as well as intolerance to Multaq secondary to diarrhea Hypertension Dilated aortic root Mild CAD PLAN: A. fib ablation Continue anticoagulation HPI Patient continues to have palpitations He is intolerant of 2 ventricular drugs and has failed them in addition He denies any fever chills cough expectoration no nausea vomiting or diarrhea He has mild CAD but has not had any angina like symptoms no syncope ROS: No fever chills or rigors, no cough, phlegm or expectoration, no nausea, vomiting or diarrhea, no hematuria, dysuria, no musculoskeletal complaints, no strokes or seizures, no skin lesions. EXAMINATION: 146/86, pulse rate in the 60s afebrile Breath sounds are clear no rhonchi no crackles Heart sounds S1 and S2 are normal no murmurs or gallops. No JVD No lower extremity edema REVIEW OF LABS, ECG & MEDICAL DATA Currently on nadolol losartan rosuvastatin
[2022-02-04] MEDS ORDERED: ACETAMINOPHEN IV (For NPO) 1,000 MG/100 ML VIAL IVPB ONE (15:00)
--- NOTE | 2022-02-04 15:05 | P.EPPROC ---
- EP Procedure Note Electrophysiology Procedure Note: PROCEDURE A. fib ablation/PVI/roofline and upper posterior wall ablation/left septal ablation DIAGNOSIS Atrial fibrillation, symptomatic, refractory to therapy RESULT No left atrial appendage mass seen on intracardiac echo Evidence of pericarditis with small effusion and fibrinous exudate in the base Reappearance of PVCs in the right superior pulmonary vein, Reappearance of PCPs of the hanna between the right superior and right inferior Reappearance of PVCs in the hanna between left superior and left inferior pulmonary veins Successful A. fib ablation/pulmonary vein isolation of all veins using cryo- ablation Complete entrance block in all 4 veins confirmed No evidence for phrenic nerve injury Linear ablation successfully performed in the left atrial roof and confirmed block Left atrial septal ablation and confirmed isolation Esophageal deflection YES , left-sided esophagus PROCEDURE DETAILS Patient was brought to the EP lab in a fasting state after obtaining written informed consent. Procedure performed under general anesthesia Esophagus was intubated. Esophageal temperature monitoring with circa catheter. Esophageal deflection with an endoscope to avoid hypothermia of the esophagus. After initial muscle relaxant use, muscle relaxants were not given thereafter in order to assess phrenic nerve during procedure. Patient prepped and draped as per protocol Cryo ablation-set up with standard preparation of the cryoablation tools done. Femoral Venous access obtained on the right and left groins and sheaths placed Diagnostic catheters for the high right atrium, phrenic nerve stimulation and pacing, His bundle, coronary sinus placed Intracardiac echo catheter placed. Long sheath placed in the right atrium Left and right transseptal catheterization performed under intracardiac echo guidance. Intravenous heparin with aCT above 300 Later, catheter positioning and balloon positioning in the left atrium and pulmonary veins, under intracardiac echo guidance Diagnostic EP study with coronary sinus pacing and recording Baseline measurements: QRS 80 ms, QT 459 ms and AK interval 164 ms AH 52 and HV 60 ms AV node Wenckebach block for 140 ms Sinus recovery times a 600 504 100 ms were 1406, 1333 and 1460 ms Burst stimulation from the high right atrium and burst stimulation from the coronary sinus both on and off Isuprel did not induce any atrial fibrillation after ablation Transseptal catheterization performed RA pressure 10/6/80 LA pressure 28/6/14 Transseptal catheterization performed with standard sheath. The cryoablation sheath was then placed with an over the wire exchange without any acute complications. The cryoablation balloon was placed in the office of each pulmonary vein and all 4 pulmonary veins were isolated. IV dye was injected to confirm occlusion. Goal: achieve complete occlusion of the pulmonary vein, achieve -30 degrees C at 30 seconds and achieve -40 degrees C at 60 seconds and a time to effect of less than 60 seconds. If not, the balloon was repositioned to obtain this result After completion of Cryoblation with durations from 180-240 seconds, entrance block was confirmed with the Attain circular catheter in a roving fashion around the antrum of the pulmonary veins Phrenic nerve pacing was performed from the SVC, right innominate vein area and diaphragm voltage was monitored. Diaphragmatic contractions were also monitored manually for strength of contraction. At the end of the procedure the Achieve catheter was once again used to check for entrance block Phrenic nerve stimulation was performed to confirm diaphragmatic stimulation the end of the procedure Serial ablations performed along the left atrial roof with complete isolation of the left atrial roof in the upper posterior wall of the LAD Ablation performed in the left atrial septum and complete isolation confirmed Pulmonary veins completely isolated Cine fluoroscopy was performed at the very end of the procedure to confirm movement of both diaphragms with inspiration and expiration At the end of the procedure the patient was extubated Venous sheaths were removed and hemostasis assured with a closure device PROCEDURES PERFORMED Diagnostic EP study CS pacing and recording Left and right transseptal catheterization Catheter the mapping of the tachycardia Intracardiac echocardiography Pulmonary vein isolation with transseptal and comprehensive EPS, 48811 Drug infusion, +[id number] Left atrial roof line, +[id number] Linear ablation, left atrium, +[id number]
[2022-02-04] MEDS ORDERED: ACETAMINOPHEN IV (For NPO) 1,000 MG in EMPTY BAG 1 BAG IVPB ONE (15:06)
[2022-02-04] MEDS ORDERED: ACETAMINOPHEN TAB 325 MG TAB PO PRN (15:06)
[2022-02-04] MEDS ORDERED: HYDROmorphone 0.5 MG/0.5 ML SYRINGE IVP ONE (15:10)
[2022-02-04] MEDS: carvediloL 3.125 MG TAB PO SCH (18:08)
[2022-02-04 18:10] VITALS: RESP 18
[2022-02-04] MEDS: LOSARTAN 50 MG TAB PO SCH (20:52)
[2022-02-04] MEDS: TAMSULOSIN 0.4 MG CAP.ER.24H PO SCH (20:52)
[2022-02-05 03:33] VITALS: PULSE 68
[2022-02-05 06:18] VITALS: BP 138/71; TEMP 97.4
[2022-02-05] MEDS: carvediloL 3.125 MG TAB PO SCH (06:20)
[2022-02-05] MEDS ORDERED: ATORVASTATIN 20 MG TAB PO SCH (09:00)
[2022-02-05] MEDS ORDERED: RIVAROXABAN 20 MG TAB PO SCH (09:00)
[2022-02-05] MEDS: LOSARTAN 50 MG TAB PO SCH (09:33)
[2022-02-05] MEDS: TAMSULOSIN 0.4 MG CAP.ER.24H PO SCH (09:33)
--- NOTE | 2022-02-05 10:10 | P.DS ---
Providers Attending physician: Hernandez Messer Primary care physician: [facility] Course: This is an 81-year-old male who underwent A. fib ablation/PVI/roofline and upper posterior wall ablation/left septal ablation with Dr. Messer on 02/04/2022. Patient is doing well post procedure with no complications noted. He denies chest pain or pressure. Denies shortness of breath. Vital signs are stable. He was deemed stable for discharge home today with close outpatient follow-up Discharge diagnosis Persistent atrial fibrillation, status post ablation Nurse practitioner note has been reviewed by physician. Signing provider agrees with the documented findings, assessment, and plan of care. Plan - Discharge Summary Discharge Rx Participant: No New Discharge Prescriptions: Continue Rivaroxaban [Xarelto] 20 mg PO DAILY Flecainide [Tambocor] 50 mg PO DAILY PRN PRN Reason: palpitations Multivit-Min/FA/Lycopen/Lutein [Centrum Silver Men Tablet] 1 tab PO DAILY allopurinoL [Zyloprim] 300 mg PO DAILY Naproxen [Naprosyn] 375 mg PO Q12HR PRN PRN Reason: Pain diazePAM [Valium] 5 mg PO HS PRN PRN Reason: sleep carvediloL [Coreg] 3.125 mg PO BID Rosuvastatin [Crestor] 10 mg PO DAILY Losartan [Cozaar] 50 mg PO BID Tamsulosin HCl [Flomax] 0.4 mg PO BID Discharge Medication List Flecainide [Tambocor] 50 mg PO DAILY PRN 05/09/15 [History] Rivaroxaban [Xarelto] 20 mg PO DAILY 05/09/15 [History] Multivit-Min/FA/Lycopen/Lutein [Centrum Silver Men Tablet] 1 tab PO DAILY 11/06/18 [History] allopurinoL [Zyloprim] 300 mg PO DAILY 11/06/18 [History] Losartan [Cozaar] 50 mg PO BID 09/02/20 [History] Naproxen [Naprosyn] 375 mg PO Q12HR PRN 09/04/20 [History] Rosuvastatin [Crestor] 10 mg PO DAILY 02/02/22 [History] Tamsulosin HCl [Flomax] 0.4 mg PO BID 02/02/22 [History] carvediloL [Coreg] 3.125 mg PO BID 02/02/22 [History] diazePAM [Valium] 5 mg PO HS PRN 02/02/22 [History] Follow up Appointment(s)/Referral(s): Hernandez Messer MD [STAFF PHYSICIAN] - 02/16/22 11:15 am (MAIN OFFICE.) Patient Instructions/Handouts: Cardiac Ablation (DC) Activity/Diet/Wound Care/Special Instructions: KEEP ACCESS SITE DRY FOR 2 DAYS NO HEAVY LIFTING, STRAINING FOR 2 DAYS AVOID BENDING HIPS REPEATEDLY FOR 2 DAYS MAY GO UP AND DOWN STAIRS, SLOWLY CALL IF: BLEEDING, INCREASED SWELLING OR PAIN AT ACCESS SITES INCREASED CHEST DISCOMFORT ESPECIALLY WITH DEEP BREATHS INCREASED SHORTNESS OF BREATH AT REST OR WITH EXERTION UNDUE COUGH/PHLEGM DIFFICULTY OR PAIN WITH SWALLOWING PAIN OR CHANGE IN COLOR OF EXTREMITIES FEVER, CHILLS, RIGOR INCREASED HEADACHE OR NEUROLOGICAL SYMPTOMS.
== END 2022-02-05 10:16 | disposition home or self-care (01) ==
LOC: CATHEP 08:23 → 6NMEDSUR 13:42 → CATHEP 02-05 10:16
PROVIDERS: ATTEND Internal Medicine Clinical Cardiac Electrophysiology
DX: I48.91 Unspecified atrial fibrillation (principal); I10 Essential (primary) hypertension; R19.7 Diarrhea, unspecified; I25.10 Atherosclerotic heart disease of native coronary artery without angina pectoris; I77.819 Aortic ectasia, unspecified site
CPT/HCPCS: 93623; 93656; 93657; C1759; C1894; C1769 ×3; C1760; C1730 ×2; C1893; C1733; C1766; C1732; J2250; J0330; J1644 ×3; J1940; J2001 ×2; J3010; J0131; J2704; J1170; Q9967

== ENCOUNTER 2022-04-26 08:49 | Inpatient (IN) | payer MEDICARE ==
--- NOTE | 2022-04-26 09:32 | ED ---
General Adult HPI - General Chief complaint: Arrhythmia/Palpitations Stated complaint: tachycardia Time Seen by Provider: 04/26/22 09:10 Source: patient, RN notes reviewed, old records reviewed Mode of arrival: ambulatory Limitations: no limitations - History of Present Illness Initial comments: This is an 81-year-old male presents emergency Department complaining that he has been feeling some palpitations lately and as of 1:30 this morning he had an episode where he felt the palpitations but 100 2230 beats a minute he felt short of breath and he states on his at home monitor he noticed it going from a sinus rhythm to a ventricular rhythm. Patient denies any fever chills or cough recently. Patient denies any abdominal pain diffusely. Patient states he recently saw his senior enterprise architect and flecainide was stopped and patient was started on allopurinol for pericarditis - Related Data Home Medications Medication Instructions Recorded Confirmed Rivaroxaban [Xarelto] 20 mg PO DAILY 05/09/15 04/26/22 Multivit-Min/FA/Lycopen/Lutein 1 tab PO DAILY 11/06/18 04/26/22 [Centrum Silver Men Tablet] allopurinoL [Zyloprim] 300 mg PO DAILY 11/06/18 04/26/22 Losartan [Cozaar] 50 mg PO BID 09/02/20 04/26/22 Naproxen [Naprosyn] 375 mg PO Q12HR PRN 09/04/20 04/26/22 Rosuvastatin [Crestor] 10 mg PO DAILY 02/02/22 04/26/22 carvediloL [Coreg] 3.125 mg PO BID 02/02/22 04/26/22 diazePAM [Valium] 5 mg PO HS PRN 02/02/22 04/26/22 Colchicine 0.6 mg PO DAILY 04/26/22 04/26/22 Lansoprazole 30 mg PO DAILY PRN 04/26/22 04/26/22 Allergies Allergy/AdvReac Type Severity Reaction Status Date / Time Sulfa (Sulfonamide Allergy Rash/Hives Verified 04/26/22 10:35 Antibiotics) adhesive on monitor stickers Allergy irritated Uncoded 04/26/22 10:35 skin,itching Review of Systems ROS Statement: Those systems with pertinent positive or pertinent negative responses have been documented in the HPI. ROS Other: All systems not noted in ROS Statement are negative. Past Medical History Past Medical History: Atrial Fibrillation, Hypertension, Osteoarthritis (OA), Sleep Apnea/CPAP/BIPAP Additional Past Medical History / Comment(s): See Dr Messer's H&P,uses CPAP, kidney stones, benign prostatic hypertrophy, spondylolisthesis and sciatica right leg, proximal atrial fibrillation,gout History of Any Multi-Drug Resistant Organisms: None Reported Past Surgical History: Cardiac Ablation, Joint Replacement, Prostate Surgery Additional Past Surgical History / Comment(s): October 2018 4th toe left foot surgery,both hips replaced, TURP, vent and umb hernia repair,cardiac ablation x2 Past Anesthesia/Blood Transfusion Reactions: No Reported Reaction Past Psychological History: No Psychological Hx Reported Smoking Status: Former smoker Past Alcohol Use History: None Reported Past Drug Use History: None Reported - Past Family History Mother Family Medical History: No Reported History Additional Family Medical History / Comment(s): Mother at age 78 with history of rheumatic heart disease and from complications of this. Father Additional Family Medical History / Comment(s): Father at age 96 with history of hypertension. Brother(s) Additional Family Medical History / Comment(s): One brother at age 48 from a myocardial infarction with history of smoking. General Exam - General Exam Comments Initial Comments: GENERAL: Patient is well-developed and well-nourished. Patient is nontoxic and well-hydr ated and is in mild distress. ENT: Neck is soft and supple. No significant lymphadenopathy is noted. Oropharynx is clear. Moist mucous membranes. Neck has full range of motion without eliciting any pain. EYES: The sclera were anicteric and conjunctiva were pink and moist. Extraocular movements were intact and pupils were equal round and reactive to light. Eyelids were unremarkable. PULMONARY: Unlabored respirations. Good breath sounds bilaterally. No audible rales rhonchi or wheezing was noted. CARDIOVASCULAR: There is a regular rate and rhythm without any murmurs gallops or rubs. ABDOMEN: Soft and nontender with normal bowel sounds. SKIN: Skin is clear with no lesions or rashes and otherwise unremarkable. NEUROLOGIC: Patient is alert and oriented x3. Cranial nerves II through XII are grossly intact. Motor and sensory are also intact. Normal speech, volume and content. Symmetrical smile. MUSCULOSKELETAL: Normal extremities with adequate strength and full range of motion. No lower extremity swelling or edema. No calf tenderness. LYMPHATICS: No significant lymphadenopathy is noted PSYCHIATRIC: Normal psychiatric evaluation. Limitations: no limitations Course Vital Signs 04/26/22 04/26/22 08:54 11:17 Temperature 98 F Pulse Rate 100 60 Respiratory 18 16 Rate Blood Pressure 157/123 163/100 O2 Sat by Pulse 100 97 Oximetry Medical Decision Making - Medical Decision Making EKG was interpreted by myself. EKG shows sinus rhythm at 64 bpm with an occasional PVC there is no ST segment elevation or depression. A repeat EKG was done I interpret EKG myself it shows a sinus rhythm with a run of ventricular rhythm which looks like multiple PVCs at a rate of 84 bpm PA interval is 241 QRS is under 40 QT interval 408 QTC is 449. Patient's EKG shows no ST segment elevation or depression. Was pt. sent in by a medical professional or institution (, [facility], WIND COMMISSIONING TECHNICIAN, urgent care, hospital, or care home...) When possible be specific @ -No Did you speak to anyone other than the patient for history (EMS, parent, family, police, friend...)? What history was obtained from this source @ -No Did you review nursing and triage notes (agree or disagree)? Why? @ -I reviewed and agree with nursing and triage notes Were old charts reviewed (outside hosp., previous admission, EMS record, old EKG, old radiological studies, urgent care reports/EKG's, care home records)? Report findings @ -No old charts were reviewed Differential Diagnosis (chest pain, altered mental status, abdominal pain women, abdominal pain men, vaginal bleeding, weakness, fever, dyspnea, syncope, headache, dizziness, GI bleed, back pain, seizure, CVA, palpatations, mental health)? @ -Differential Dyspnea: Coronary syndrome, arrhythmia, tamponade, asthma, COPD, pulmonary embolism, pneumonia, pneumothorax, pulmonary effusion, anaphylaxis, diabetic ketoacidosis, flailed chest, pulmonary contusion, diaphragmatic rupture, anemia, neuromuscular, this is not meant to be an all-inclusive list. EKG interpreted by me (3pts min.). @ -As above X-rays interpreted by me (1pt min.). @ -Chest x-ray shows no acute abnormality and it was interpreted by myself. CT interpreted by me (1pt min.). @ -None done U/S interpreted by me (1pt. min.). @ -None done What testing was considered but not performed or refused? (CT, X-rays, U/S, labs)? Why? @ -None What meds were considered but not given or refused? Why? @ -None Did you discuss the management of the patient with other professionals (professionals i.e. , PA, WIND COMMISSIONING TECHNICIAN, lab, RT, psych nurse, social sciences chair, embroidery specialist, teacher, energy control officer, case management social worker)? Give summary @ -I spoke with the WIND COMMISSIONING TECHNICIAN from cardiology and they wanted the patient admitted and I spoke with each of his Hospitalist agreed to admit the patient Was smoking cessation discussed for >3mins.? @ -No Was critical care preformed (if so, how long)? @ -No Were there social determinants of health that impacted care today? How? (Homelessness, low income, unemployed, alcoholism, drug addiction, transportation, low edu. Level, literacy, decrease access to med. care, intermediate, rehab)? @ -No Was there de-escalation of care discussed even if they declined (Discuss DNR or withdrawal of care, Hospice)? DNR status @ -No What co-morbidities impacted this encounter? (DM, HTN, Smoking, COPD, CAD, Cancer, CVA, ARF, Chemo, Hep., AIDS, mental health diagnosis, sleep apnea, morbid obesity)? @ -None Was patient admitted / discharged? Hospital course, mention meds given and rou te, prescriptions, significant lab abnormalities, going to OR and other pertinent info. @ -Patient will be admitted to the hospital I spoke with each of his hospitalist as well as cardiology and they were in agreement with admitting the patient. Undiagnosed new problem with uncertain prognosis? @ -No Drug Therapy requiring intensive monitoring for toxicity (Heparin, Nitro, Insulin, Cardizem)? @ -No Were any procedures done? @ -No Diagnosis/symptom? @ -V. tach Acute, or Chronic, or Acute on Chronic? @ -Acute on chronic Uncomplicated (without systemic symptoms) or Complicated (systemic symptoms)? @ -Complicated Side effects of treatment? @ -No Exacerbation, Progression, or Severe Exacerbation? @ -No Poses a threat to life or bodily function? How? (Chest pain, USA, NC, pneumonia, PE, COPD, DKA, ARF, appy, cholecystitis, CVA, Diverticulitis, Homicidal, Suicidal, threat to staff... and all critical care pts) @ -yes - Lab Data Result diagrams: 04/26/22 09:28 04/26/22 09:28 Lab Results 04/26/22 04/26/22 04/26/22 Range/Units 09:28 09:28 09:28 WBC 6.2 (3.8-10.6) k/uL RBC 5.27 (4.30-5.90) m/uL Hgb 17.6 H (13.0-17.5) gm/dL Hct 51.8 (39.0-53.0) % MCV 98.2 (80.0-100.0) fL MCH 33.4 (25.0-35.0) pg MCHC 34.0 (31.0-37.0) g/dL RDW 12.6 (11.5-15.5) % Plt Count 125 L (150-450) k/uL MPV 9.1 Neutrophils % 69 % Lymphocytes % 16 % Monocytes % 7 % Eosinophils % 4 % Basophils % 1 % Neutrophils # 4.3 (1.3-7.7) k/uL Lymphocytes # 1.0 (1.0-4.8) k/uL Monocytes # 0.5 (0-1.0) k/uL Eosinophils # 0.2 (0-0.7) k/uL Basophils # 0.0 (0-0.2) k/uL PT 13.1 H (9.0-12.0) sec INR 1.3 H (<1.2) APTT 31.0 H (22.0-30.0) sec Sodium 143 (137-145) mmol/L Potassium 4.5 (3.5-5.1) mmol/L Chloride 107 (98-107) mmol/L Carbon Dioxide 25 (22-30) mmol/L Anion Gap 11 mmol/L BUN 20 (9-20) mg/dL Creatinine 0.99 (0.66-1.25) mg/dL Est GFR (CKD-EPI)AfAm 83 (>60 ml/min/1.73 sqM) Est GFR (CKD-EPI)NonAf 72 (>60 ml/min/1.73 sqM) Glucose 105 H (74-99) mg/dL Calcium 9.5 (8.4-10.2) mg/dL Magnesium 1.9 (1.6-2.3) mg/dL Total Bilirubin 0.8 (0.2-1.3) mg/dL AST 26 (17-59) U/L ALT 28 (4-49) U/L Alkaline Phosphatase 68 (38-126) U/L Troponin I (0.000-0.034) ng/mL Total Protein 7.3 (6.3-8.2) g/dL Albumin 4.7 (3.5-5.0) g/dL 04/26/22 Range/Units 09:28 WBC (3.8-10.6) k/uL RBC (4.30-5.90) m/uL Hgb (13.0-17.5) gm/dL Hct (39.0-53.0) % MCV (80.0-100.0) fL MCH (25.0-35.0) pg MCHC (31.0-37.0) g/dL RDW (11.5-15.5) % Plt Count (150-450) k/uL MPV Neutrophils % % Lymphocytes % % Monocytes % % Eosinophils % % Basophils % % Neutrophils # (1.3-7.7) k/uL Lymphocytes # (1.0-4.8) k/uL Monocytes # (0-1.0) k/uL Eosinophils # (0-0.7) k/uL Basophils # (0-0.2) k/uL PT (9.0-12.0) sec INR (<1.2) APTT (22.0-30.0) sec Sodium (137-145) mmol/L Potassium (3.5-5.1) mmol/L Chloride (98-107) mmol/L Carbon Dioxide (22-30) mmol/L Anion Gap mmol/L BUN (9-20) mg/dL Creatinine (0.66-1.25) mg/dL Est GFR (CKD-EPI)AfAm (>60 ml/min/1.73 sqM) Est GFR (CKD-EPI)NonAf (>60 ml/min/1.73 sqM) Glucose (74-99) mg/dL Calcium (8.4-10.2) mg/dL Magnesium (1.6-2.3) mg/dL Total Bilirubin (0.2-1.3) mg/dL AST (17-59) U/L ALT (4-49) U/L Alkaline Phosphatase (38-126) U/L Troponin I <0.012 (0.000-0.034) ng/mL Total Protein (6.3-8.2) g/dL Albumin (3.5-5.0) g/dL Disposition Clinical Impression: Ventricular tachycardia Disposition: ADMITTED IP TO THIS HOSP Referrals: Dagoberto Gupta MD [Primary Care Provider] - 1-2 days Time of Disposition: 11:26
[2022-04-26 09:44] LABS: Basophils % (A) 1 %; Eosinophils # (A) 0.2 k/uL (0-0.7); Eosinophils % (A) 4 %; HCT 51.8 % (39.0-53.0); HGB 17.6 gm/dL (13.0-17.5); Lymphocytes % (A) 16 %; MCH 33.4 pg (25.0-35.0); MCV 98.2 fL (80.0-100.0); Mean Platelet Volume 9.1; Monocytes # (A) 0.5 k/uL (0-1.0); Monocytes % (A) 7 %; Neutrophils # (A) 4.3 k/uL (1.3-7.7); Neutrophils % (A) 69 %; Platelet Count 125 k/uL (150-450); RBC 5.27 m/uL (4.30-5.90); RDW 12.6 % (11.5-15.5); WBC 6.2 k/uL (3.8-10.6)
--- NOTE | 2022-04-26 09:48 | XR ---
EXAMINATION TYPE: XR chest 2V DATE OF EXAM: 04/26/2022 9:44 AM COMPARISON: Chest radiographs from 06/30/2011 TECHNIQUE: XR chest 2V Frontal and lateral views of the chest. CLINICAL INDICATION:Male, 81 years old with history of dysrhythmia; FINDINGS: Lungs/Pleura: There is no evidence of pleural effusion, focal consolidation, or pneumothorax. Pulmonary vascularity: Unremarkable. Heart/mediastinum: Cardiomediastinal silhouette is mildly prominent in size. Musculoskeletal: Multiple level degenerative disc disease changes seen throughout the spine. Flowing anterior osteophytes of the thoracic spine suggestive of diffuse skeletal hyperostosis. No acute osse ous antibody. IMPRESSION: No acute cardiopulmonary disease/process.
[2022-04-26 09:56] LABS: INR 1.3 (<1.2); Prothrombin Time 13.1 sec (9.0-12.0)
[2022-04-26 10:07] LABS: Albumin 4.7 g/dL (3.5-5.0); Calcium 9.5 mg/dL (8.4-10.2); Magnesium 1.9 mg/dL (1.6-2.3); Potassium 4.5 mmol/L (3.5-5.1); Total Bilirubin 0.8 mg/dL (0.2-1.3); Total Protein 7.3 g/dL (6.3-8.2)
[2022-04-26] MEDS ORDERED: NITROGLYCERIN SL TABS 0.4 MG TAB SUBLINGUAL PRN (11:27)
--- NOTE | 2022-04-26 11:41 | P.CRDCN ---
History of Present Illness Consult date: 04/26/22 Reason for Consult (text): VT History of present illness: This is an 81-year-old male patient of Dr. Messer with past medical history for paroxysmal atrial fibrillation as well as nonsustained ventricular tachycardia on flecainide, failed multaq status post atrial fibrillation ablation 3. Patient was recently seen [address] Messer in the office and he had been having PVCs and apparently there was concern for pericarditis. Patient was instructed to stop flecainide and he was started on colchicine. Patient decided to wean himself off flecainide and continue to take one dose in the evening for the past couple days. He also chose to increase his Coreg last 2 mornings. Regarding the cold consent. Patient took half dose for the past 2 days. Patient has been experiencing frequent PVCs but this morning he had persistent sensation palpitations and shortness of breath while he was resting in bed. He felt like his balance was a little off but not truly lightheaded or dizzy. He had no loss of consciousness. Because of the shortness of breath and the persistence symptoms, patient checked a rhythm strip at home and found that he had V. tach around 25 beats. EKG #1 sinus rhythm with rare PVCs, #2 sinus rhythm with run of V. tach 8 beats Chest x-ray no acute cardio pulmonary disease CBC unremarkable. INR 1.3. Potassium 4.5, BUN 20 creatinine 0.99. Magnesium 1.9. Troponin negative 1 Review Of Systems: At the time of my evaluation: Constitutional: No fever, no chills. No weakness, fatigue or lethargy. EENT: No headache. No dizziness. Lungs: No shortness of breath, cough, no sputum production. No wheezing. Cardiovascular: No chest pain, no lower extremity edemareportsalpitations. No paroxysmal nocturnal dyspnea. No orthopnea. No lightheadedness or dizziness. No syncopal episodes. Abdominal: No abdominal pain. No nausea, vomiting. No diarrhea. No constipation. No bloody or tarry stools. Musculoskeletal: No myalgias. No muscle weakness, no frequent falls. Integumentary: No wounds. No rash. No unusual bruising. Neurologic: No aphasia. No facial droop. No change in mentation. Physical examination: Gen: This is and 81-year-old male. He is resting on the ER stretcher and appears to be comfortable and in no acute distress Vital signs: reviewed HEENT: Head is atraumatic, normocephalic. Pupils equal, round. Sclerae is anicteric. NECK: Supple. No JVD. No lymphadenopathy. No thyromegaly. LUNGS: Clear to auscultation. No wheezes or rhonchi. No intercostal retr actions. HEART: Regular rate and rhythm. No murmur. ABDOMEN: Soft. Bowel sounds are present. No masses. No tenderness. EXTREMITIES: No pedal edema. No calf tenderness. NEUROLOGICAL: Patient is awake, alert and oriented x3. Cranial nerves 2 through 12 are grossly intact. Assessment Nonsustained ventricular tachycardia verses aberrancy with wide QRS Paroxysmal atrial fibrillation status post cryoablation Hypertension Peripheral vascular disease Plan Resume Coreg at increased dose of 6.25 mg twice daily Consult Dr. Messer for EP evaluation Continue patient on Xarelto 20 mg daily, losartan 50 mg twice daily Discontinue aspirin Further recommendations to follow based upon clinical course Thank you kindly for this consultation. Nurse practitioner note has been reviewed, I agree with documented findings and plan of care. Patient was seen and examined. Past Medical History Past Medical History: Atrial Fibrillation, Hypertension, Osteoarthritis (OA), Sleep Apnea/CPAP/BIPAP Additional Past Medical History / Comment(s): See Dr Messer's H&P,uses CPAP, kidney stones, benign prostatic hypertrophy, spondylolisthesis and sciatica right leg, proximal atrial fibrillation,gout History of Any Multi-Drug Resistant Organisms: None Reported Past Surgical History: Cardiac Ablation, Joint Replacement, Prostate Surgery Additional Past Surgical History / Comment(s): October 2018 4th toe left foot surgery,both hips replaced, TURP, vent and umb hernia repair,cardiac ablation x2 Past Anesthesia/Blood Transfusion Reactions: No Reported Reaction Past Psychological History: No Psychological Hx Reported Smoking Status: Former smoker Past Alcohol Use History: None Reported Past Drug Use History: None Reported - Past Family History Mother Family Medical History: No Reported History Additional Family Medical History / Comment(s): Mother at age 78 with history of rheumatic heart disease and from complications of this. Father Additional Family Medical History / Comment(s): Father at age 96 with history of hypertension. Brother(s) Additional Family Medical History / Comment(s): One brother at age 48 from a myocardial infarction with history of smoking. Medications and Allergies Home Medications Medication Instructions Recorded Confirmed Type Rivaroxaban [Xarelto] 20 mg PO DAILY 05/09/15 04/26/22 History Multivit-Min/FA/Lycopen/Lutein 1 tab PO DAILY 11/06/18 04/26/22 History [Centrum Silver Men Tablet] allopurinoL [Zyloprim] 300 mg PO DAILY 11/06/18 04/26/22 History Losartan [Cozaar] 50 mg PO BID 09/02/20 04/26/22 History Naproxen [Naprosyn] 375 mg PO Q12HR PRN 09/04/20 04/26/22 History Rosuvastatin [Crestor] 10 mg PO DAILY 02/02/22 04/26/22 History carvediloL [Coreg] 3.125 mg PO BID 02/02/22 04/26/22 History diazePAM [Valium] 5 mg PO HS PRN 02/02/22 04/26/22 History Colchicine 0.6 mg PO DAILY 04/26/22 04/26/22 History Lansoprazole 30 mg PO DAILY PRN 04/26/22 04/26/22 History Allergies Allergy/AdvReac Type Severity Reaction Status Date / Time Sulfa (Sulfonamide Allergy Rash/Hives Verified 04/26/22 10:35 Antibiotics) adhesive on monitor stickers Allergy irritated Uncoded 04/26/22 10:35 skin,itching Physical Exam Vitals: Vital Signs Temp Pulse Resp BP Pulse Ox 04/26/22 11:17 60 16 163/100 97 04/26/22 08:54 98 F 100 18 157/123 100 Intake and Output 04/25/22 04/26/22 04/26/22 22:59 06:59 14:59 Other: Weight 93.44 kg Results 04/26/22 09:28 04/26/22 09:28 Cardiac Enzymes 04/26/22 04/26/22 Range/Units 09:28 09:28 AST 26 (17-59) U/L Troponin I <0.012 (0.000-0.034) ng/mL Coagulation 04/26/22 Range/Units 09:28 PT 13.1 H (9.0-12.0) sec APTT 31.0 H (22.0-30.0) sec CBC 04/26/22 Range/Units 09:28 WBC 6.2 (3.8-10.6) k/uL RBC 5.27 (4.30-5.90) m/uL Hgb 17.6 H (13.0-17.5) gm/dL Hct 51.8 (39.0-53.0) % Plt Count 125 L (150-450) k/uL Comprehensive Metabolic Panel 04/26/22 Range/Units 09:28 Sodium 143 (137-145) mmol/L Potassium 4.5 (3.5-5.1) mmol/L Chloride 107 (98-107) mmol/L Carbon Dioxide 25 (22-30) mmol/L BUN 20 (9-20) mg/dL Creatinine 0.99 (0.66-1.25) mg/dL Glucose 105 H (74-99) mg/dL Calcium 9.5 (8.4-10.2) mg/dL AST 26 (17-59) U/L ALT 28 (4-49) U/L Alkaline Phosphatase 68 (38-126) U/L Total Protein 7.3 (6.3-8.2) g/dL Albumin 4.7 (3.5-5.0) g/dL Intake and Output 04/25/22 04/26/22 04/26/22 22:59 06:59 14:59 Other: Weight 93.44 kg Patient Weight 04/27/22 06:59 Weight 93.44 kg 04/26/22 09:28 04/26/22 09:28
[2022-04-26] MEDS ORDERED: hydrALAZINE HCL 20 MG/ML 1 ML VIAL IVP STA (11:43)
[2022-04-26] MEDS ORDERED: LOSARTAN 50 MG TAB PO SCH (11:45)
[2022-04-26] MEDS: carvediloL 6.25 MG TAB PO SCH ×2 (12:05→18:19)
[2022-04-26] MEDS ORDERED: PANTOPRAZOLE 40 MG TABLET PO PRN (13:52)
--- NOTE | 2022-04-26 14:01 | P.HPIM ---
History of Present Illness H&P Date: 04/26/22 History of present illness; Patient is a 81-year-old male with past medical history significant for p aroxysmal atrial fibrillation as well as nonsustained ventricular tachycardia on flecainide, hypertension who presented to the ER because of palpitations that started this morning. Patient follows up with EP Dr messer who was seen 3 days ago in the office and he had been having PVCs and apparently there was concern for pericarditis. Patient was instructed to stop flecainide and he was started on colchicine. Patient woke up this morning with palpitation, it was associated with shortness of breath ,denies any chest pain at that time. He had no loss of consciousness. Because of the shortness of breath and the persistence symptoms, patient checked a rhythm strip at home and found that he had V. tach around 25 beats. Because of persistent palpitation, patient became concerned and came to the ER of [facility]. In the ER initial EKG showed sinus rhythm with frequent PVCs. Telemetry did showed patient to have episodes of nonsustained V. tach.Chest x-ray no acute cardio pulmonary disease Initial lab work showed white count of 6.2, hemoglobin of 17.6, platelet count 125, sodium 143, potassium 4.5, chloride 107, carbonate 25, anion gap 11, BUN 20, creatinine 0.99. Patient was admitted to hospitalist service for further evaluation and treatment REVIEW OF SYSTEMS: CONSTITUTIONAL: No fever, no malaise, no fatigue. HEENT: No recent visual problems or hearing problems. Denied any sore throat. CARDIOVASCULAR: As mentioned in the HPI PULMONARY: no cough, no hemoptysis. GASTROINTESTINAL: No diarrhea, no nausea, no vomiting, no abdominal pain. NEUROLOGICAL: No headaches, no weakness, no numbness. HEMATOLOGICAL: Denies any bleeding or petechiae. GENITOURINARY: Denies any burning micturition, frequency, or urgency. MUSCULOSKELETAL/RHEUMATOLOGICAL: Denies any joint pain, swelling, or any muscle pain. ENDOCRINE: Denies any polyuria or polydipsia. The rest of the 14-point review of systems is negative. PHYSICAL EXAMINATION: GENERAL: The patient is alert and oriented x3, not in any acute distress. Well developed, well nourished. HEENT: Pupils are round and equally reacting to light. EOMI. No scleral icterus. No conjunctival pallor. Normocephalic, atraumatic. No pharyngeal erythema. No thyromegaly. CARDIOVASCULAR: S1 and S2 present. No murmurs, rubs, or gallops. PULMONARY: Chest is clear to auscultation, no wheezing or crackles. ABDOMEN: Soft, nontender, nondistended, normoactive bowel sounds. No palpable organomegaly. MUSCULOSKELETAL: No joint swelling or deformity. EXTREMITIES: No cyanosis, clubbing, or pedal edema. NEUROLOGICAL: Gross neurological examination did not reveal any focal deficits. SKIN: No rashes. Assessment and plan Nonsustained ventricular tachycardia verses aberrancy with wide QRS Paroxysmal atrial fibrillation status post cryoablation Hypertension Peripheral vascular disease Plan Monitor vital signs Monitor CBC Continue telemetry monitoring. Monitor troponins Continue Coreg Continue his Xarelto Consult Dr. Messer for EP evaluation Continue patient on Xarelto 20 mg daily, losartan 50 mg twice daily Past Medical History Past Medical History: Atrial Fibrillation, Hypertension, Osteoarthritis (OA), Sleep Apnea/CPAP/BIPAP Additional Past Medical History / Comment(s): See Dr Messer's H&P,uses CPAP, kidney stones, benign prostatic hypertrophy, spondylolisthesis and sciatica right leg, proximal atrial fibrillation,gout History of Any Multi-Drug Resistant Organisms: None Reported Past Surgical History: Cardiac Ablation, Joint Replacement, Prostate Surgery Additional Past Surgical History / Comment(s): October 2018 4th toe left foot surgery,both hips replaced, TURP, vent and umb hernia repair,cardiac ablation x2 Past Anesthesia/Blood Transfusion Reactions: No Reported Reaction Past Psychological History: No Psychological Hx Reported Smoking Status: Former smoker Past Alcohol Use History: None Reported Past Drug Use History: None Reported - Past Family History Mother Family Medical History: No Reported History Additional Family Medical History / Comment(s): Mother at age 78 with history of rheumatic heart disease and from complications of this. Father Additional Family Medical History / Comment(s): Father at age 96 with history of hypertension. Brother(s) Additional Family Medical History / Comment(s): One brother at age 48 from a myocardial infarction with history of smoking. Medications and Allergies Home Medications Medication Instructions Recorded Confirmed Type Rivaroxaban [Xarelto] 20 mg PO DAILY 05/09/15 04/26/22 History Multivit-Min/FA/Lycopen/Lutein 1 tab PO DAILY 11/06/18 04/26/22 History [Centrum Silver Men Tablet] allopurinoL [Zyloprim] 300 mg PO DAILY 11/06/18 04/26/22 History Losartan [Cozaar] 50 mg PO BID 09/02/20 04/26/22 History Naproxen [Naprosyn] 375 mg PO Q12HR PRN 09/04/20 04/26/22 History Rosuvastatin [Crestor] 10 mg PO DAILY 02/02/22 04/26/22 History carvediloL [Coreg] 3.125 mg PO BID 02/02/22 04/26/22 History diazePAM [Valium] 5 mg PO HS PRN 02/02/22 04/26/22 History Colchicine 0.6 mg PO DAILY 04/26/22 04/26/22 History Lansoprazole 30 mg PO DAILY PRN 04/26/22 04/26/22 History Allergies Allergy/AdvReac Type Severity Reaction Status Date / Time Sulfa (Sulfonamide Allergy Rash/Hives Verified 04/26/22 10:35 Antibiotics) adhesive on monitor stickers Allergy irritated Uncoded 04/26/22 10:35 skin,itching Physical Exam Vitals: Vital Signs Temp Pulse Resp BP Pulse Ox 04/26/22 13:00 84 16 112/61 95 04/26/22 12:04 61 16 139/100 97 04/26/22 11:17 60 16 163/100 97 04/26/22 11:00 66 16 150/97 96 04/26/22 10:30 62 18 149/100 96 04/26/22 10:00 64 16 185/101 97 04/26/22 09:30 64 16 172/107 96 04/26/22 08:54 98 F 100 18 157/123 100 Intake and Output 04/25/22 04/26/22 04/26/22 22:59 06:59 14:59 Other: Weight 93.44 kg Results CBC & Chem 7: 04/26/22 09:28 04/26/22 09:28 Labs: Abnormal Lab Results - Last 24 Hours (Table) 04/26/22 04/26/22 04/26/22 Range/Units 09:28 09:28 09:28 Hgb 17.6 H (13.0-17.5) gm/dL Plt Count 125 L (150-450) k/uL PT 13.1 H (9.0-12.0) sec INR 1.3 H (<1.2) APTT 31.0 H (22.0-30.0) sec Glucose 105 H (74-99) mg/dL
[2022-04-26] MEDS: diazePAM 5 MG TAB PO PRN (22:47)
[2022-04-26] MEDS: SODIUM CHLORIDE 0.9% 1,000 ML IV SCH (22:56)
[2022-04-27 00:46] LABS: Calcium 9.1 mg/dL (8.4-10.2); Magnesium 1.8 mg/dL (1.6-2.3); Potassium 3.9 mmol/L (3.5-5.1)
[2022-04-27] MEDS: RIVAROXABAN 20 MG TAB PO SCH (06:15)
[2022-04-27] MEDS: ATORVASTATIN 20 MG TAB PO SCH (06:16)
[2022-04-27] MEDS: MULTIVITAMINS, THERA 1 EACH TAB PO SCH (06:16)
[2022-04-27] MEDS: allopurinoL 300 MG TAB PO SCH (06:16)
[2022-04-27] MEDS: carvediloL 3.125 MG TAB PO SCH ×2 (06:17→19:22)
[2022-04-27 07:15] LABS: Basophils % (A) 0 %; Eosinophils # (A) 0.2 k/uL (0-0.7); Eosinophils % (A) 3 %; HCT 45.7 % (39.0-53.0); HGB 15.7 gm/dL (13.0-17.5); Lymphocytes % (A) 14 %; MCH 33.8 pg (25.0-35.0); MCHC 34.4 g/dL (31.0-37.0); MCV 98.2 fL (80.0-100.0); Mean Platelet Volume 8.9; Monocytes # (A) 0.5 k/uL (0-1.0); Monocytes % (A) 7 %; Neutrophils % (A) 72 %; Platelet Count 113 k/uL (150-450); RBC 4.65 m/uL (4.30-5.90); RDW 12.7 % (11.5-15.5)
[2022-04-27 07:32] LABS: AST 22 U/L (17-59); African American GFR (CKD) 78 (>60 ml/min/1.73 sqM); Albumin 3.9 g/dL (3.5-5.0); Anion Gap 7 mmol/L; Blood Urea Nitrogen 22 mg/dL (9-20); Calcium 8.8 mg/dL (8.4-10.2); Carbon Dioxide 27 mmol/L (22-30); Chloride 107 mmol/L (98-107); Glucose 101 mg/dL (74-99); Non-African American GFR(CKD) 67 (>60 ml/min/1.73 sqM); Potassium 3.9 mmol/L (3.5-5.1); Sodium 141 mmol/L (137-145); Total Bilirubin 0.7 mg/dL (0.2-1.3); Total Protein 6.2 g/dL (6.3-8.2)
[2022-04-27 07:33] LABS: ALT 24 U/L (4-49); Alkaline Phosphatase 55 U/L (38-126)
[2022-04-27] MEDS ORDERED: ASPIRIN 325 MG TAB PO SCH (09:00)
[2022-04-27] MEDS ORDERED: LOSARTAN 50 MG TAB PO SCH (12:00)
--- NOTE | 2022-04-27 12:09 | P.PN ---
Subjective Progress Note Date: 04/27/22 History of present illness: This is an 81-year-old male patient of Dr. Messer with past medical history for paroxysmal atrial fibrillation as well as nonsustained ventricular tachycardia on flecainide, failed multaq status post atrial fibrillation ablation 3. Patient was recently seen [address] Messer in the office and he had been having PVCs and apparently there was concern for pericarditis. Patient was instructed to stop flecainide and he was started on colchicine. Patient decided to wean himself off flecainide and continue to take one dose in the evening for the past couple days. He also chose to increase his Coreg last 2 mornings. Regarding the cold consent. Patient took half dose for the past 2 days. Patient has been experiencing frequent PVCs but this morning he had persistent sensation palpitations and shortness of breath while he was resting in bed. He felt like his balance was a little off but not truly lightheaded or dizzy. He had no loss of consciousness. Because of the shortness of breath and the persistence symptoms, patient checked a rhythm strip at home and found that he had V. tach around 25 beats. EKG #1 sinus rhythm with rare PVCs, #2 sinus rhythm with run of V. tach 8 beats Chest x-ray no acute cardio pulmonary disease CBC unremarkable. INR 1.3. Potassium 4.5, BUN 20 creatinine 0.99. Magnesium 1.9. Troponin negative 1 04/27 Patient has been seen by Dr. Messer with plan for EP study cardioversion and possible ablation today. Note that Coreg dose was decreased by Dr. Messer. Patient is having runs of what appears to be V. tach with any activity. Blood pressures 127/87, pulse ox 94% on room air. Potassium 3.9, BUN 22 creatinine 1.05. Physical examination: Gen: This is and 81-year-old male. He is resting on the ER stretcher and appears to be comfortable and in no acute distress Vital signs: reviewed HEENT: Head is atraumatic, normocephalic. Pupils equal, round. Sclerae is anicteric. NECK: Supple. No JVD. No lymphadenopathy. No thyromegaly. LUNGS: Clear to auscultation. No wheezes or rhonchi. No intercostal retractions. HEART: Regular rate and rhythm. No murmur. ABDOMEN: Soft. Bowel sounds are present. No masses. No tenderness. EXTREMITIES: No pedal edema. No calf tenderness. NEUROLOGICAL: Patient is awake, alert and oriented x3. Cranial nerves 2 through 12 are grossly intact. Assessment Nonsustained ventricular tachycardia verses aberrancy with wide QRS Paroxysmal atrial fibrillation status post cryoablation Hypertension Peripheral vascular disease Plan Continue Coreg at 3.125 mg twice daily, losartan 50 mg daily at noon Patient is scheduled for EP study, possible radiofrequency ablation, possible cardioversion. Patient is to maintain nothing by mouth status Continue patient on Xarelto 20 mg daily Further recommendations to follow based upon clinical course Nurse practitioner note has been reviewed, I agree with documented findings and plan of care. Patient was seen and examined. Objective - Vital Signs Vital signs: Vital Signs Temp 97.7 F 04/27/22 08:00 Pulse 77 04/27/22 08:00 Resp 18 04/27/22 08:00 BP 127/87 04/27/22 08:00 Pulse Ox 94 L 04/27/22 08:00 FiO2 Intake & Output 04/26/22 04/27/22 04/27/22 18:59 06:59 18:59 Weight 93.44 kg 93.44 kg Other: Voiding Method Toilet # Voids 1 - Labs CBC & Chem 7: 04/27/22 06:45 04/27/22 06:45 Labs: Abnormal Lab Results - Last 24 Hours (Table) 04/26/22 04/26/22 04/26/22 Range/Units 09:28 09:28 09:28 Hgb 17.6 H (13.0-17.5) gm/dL Plt Count 125 L (150-450) k/uL PT 13.1 H (9.0-12.0) sec INR 1.3 H (<1.2) APTT 31.0 H (22.0-30.0) sec Chloride (98-107) mmol/L BUN (9-20) mg/dL Glucose 105 H (74-99) mg/dL Total Protein (6.3-8.2) g/dL 04/26/22 04/27/22 04/27/22 Range/Units 23:20 06:45 06:45 Hgb (13.0-17.5) gm/dL Plt Count 113 L (150-450) k/uL PT (9.0-12.0) sec INR (<1.2) APTT (22.0-30.0) sec Chloride 109 H (98-107) mmol/L BUN 23 H 22 H (9-20) mg/dL Glucose 103 H 101 H (74-99) mg/dL Total Protein 6.2 L (6.3-8.2) g/dL
--- NOTE | 2022-04-27 12:37 | P.PN ---
Subjective Progress Note Date: 04/27/22 Patient is a 81-year-old male with past medical history significant for paroxysmal atrial fibrillation as well as nonsustained ventricular tachycardia on flecainide, hypertension who presented to the ER because of palpitations that started this morning. Patient follows up with EP Dr nelson who was seen 3 days ago in the office and he had been having PVCs and apparently there was concern for pericarditis. Patient was instructed to stop flecainide and he was started on colchicine. Patient woke up this morning with palpitation, it was associated with shortness of breath ,denies any chest pain at that time. He had no loss of consciousness. Because of the shortness of breath and the persistence symptoms, patient checked a rhythm strip at home and found that he had V. tach around 25 beats. Because of persistent palpitation, patient became concerned and came to the ER of [facility]. In the ER initial EKG showed sinus rhythm with frequent PVCs. Telemetry did showed patient to have episodes of nonsustained V. tach.Chest x-ray no acute cardio pulmonary disease Initial lab work showed white count of 6.2, hemoglobin of 17.6, platelet count 125, sodium 143, potassium 4.5, chloride 107, carbonate 25, anion gap 11, BUN 20, creatinine 0.99. Patient was admitted to hospitalist service for further evaluation and treatment 04/27. Patient seen and examined. Currently laying comfortably in the bed. Currently nothing by mouth undergoing for EP procedure today. Denies any shortness of breath at this time. Did have episode of palpitations over night REVIEW OF SYSTEMS: CONSTITUTIONAL: No fever, no malaise,. CARDIOVASCULAR: No chest pain, no palpitations, no syncope. PULMONARY: No shortness of breath, no cough, GASTROINTESTINAL: No diarrhea, no nausea, no vomiting, no abdominal pain. NEUROLOGICAL: No headaches, no weakness, PHYSICAL EXAMINATION: GENERAL: The patient is alert and oriented x3, not in any acute distress. Well developed, well nourished. HEENT: Pupils are round and equally reacting to light. EOMI. No scleral icterus. No conjunctival pallor. Normocephalic, atraumatic. No pharyngeal erythema. No thyromegaly. CARDIOVASCULAR: S1 and S2 present. No murmurs, rubs, or gallops. PULMONARY: Chest is clear to auscultation, no wheezing or crackles. ABDOMEN: Soft, nontender, nondistended, normoactive bowel sounds. No palpable organomegaly. MUSCULOSKELETAL: No joint swelling or deformity. EXTREMITIES: No cyanosis, clubbing, or pedal edema. NEUROLOGICAL: Gross neurological examination did not reveal any focal deficits. SKIN: No rashes. Assessment and plan Nonsustained ventricular tachycardia verses aberrancy with wide QRS Paroxysmal atrial fibrillation status post cryoablation Hypertension Peripheral vascular disease Plan Monitor vital signs Monitor CBC Continue telemetry monitoring. Monitor troponins Continue Coreg, dose decreased to 3.125 mg twice a day by EP Continue his Xarelto Currently patient scheduled for EP study today Follow-up EP recommendations Objective - Vital Signs Vital signs: Vital Signs Temp 97.9 F 04/27/22 12:00 Pulse 59 L 04/27/22 12:00 Resp 18 04/27/22 12:00 BP 131/77 04/27/22 12:00 Pulse Ox 96 04/27/22 12:00 FiO2 Intake & Output 04/26/22 04/27/22 04/27/22 18:59 06:59 18:59 Weight 93.44 kg 93.44 kg Other: Voiding Method Toilet Toilet # Voids 1 - Labs CBC & Chem 7: 04/27/22 06:45 04/27/22 06:45 Labs: Abnormal Lab Results - Last 24 Hours (Table) 04/26/22 04/27/22 04/27/22 Range/Units 23:20 06:45 06:45 Plt Count 113 L (150-450) k/uL Chloride 109 H (98-107) mmol/L BUN 23 H 22 H (9-20) mg/dL Glucose 103 H 101 H (74-99) mg/dL Total Protein 6.2 L (6.3-8.2) g/dL
[2022-04-27] MEDS ORDERED: SODIUM CHLORIDE 0.9% 1,000 ML IV ONE (15:29)
[2022-04-27] MEDS ORDERED: LOSARTAN 50 MG TAB PO STA (15:36)
[2022-04-27] MEDS ORDERED: fentaNYL (PF) 50 MCG/ML 2 ML AMP ONE (15:57)
[2022-04-27] MEDS ORDERED: LIDOCAINE 1% INJ 10MG/ML (30 ML VIAL-PF) SQ ONE (16:25)
[2022-04-27] MEDS ORDERED: HEPARIN SODIUM (1,000 UNIT/ML) 1,000 UNIT in SODIUM CHLORIDE 0.9% 1,000 ML IRRIGATION ONE (16:25)
--- NOTE | 2022-04-27 18:55 | P.EPCON ---
Electrophysiology Consult - EP Consult Electrophysiology Consult: This is Dr. Messer dictating an electrophysiology consult on this patient The patient was interviewed and examined IMPRESSION / ASSESSMENT: Nonsustained ventricular tachycardia, recurrent asymptomatic No evidence for atrial fibrillation now following A. fib ablation Mild CAD by coronary angiography in the last 6-9 months Hypertension PLAN: I had a detailed discussion the patient and since he is having expressive recurrent episodes of nonsustained VT it would be best to perform an EP study and mapped the VT This VT has a left bundle branch block morphology with a notch at its downslope The QRS is upright in lead 1 and 2. While it is upright in lead aVF it is not tall and it is biphasic in lead 3 In the precordial leads there is a late transition I will plan for an EP study and mapping/ablation HPI Patient presented to the hospital with recurrent palpitations, very symptomatic He recently bought the [employer] EKG recorder and monitor He saw episodes of wide complex tachycardia consistent with nonsustained VT and came to the hospital He's had a history of PVCs and has known paroxysmal atrial fibrillation and is undergone in A. fib ablation He was expecting breakthrough A. 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 He un derwent angiography last year His LV function is normal His labs have been normal in the past ROS: No fever chills or rigors, no cough, phlegm or expectoration, no nausea, vomiting or diarrhea, no hematuria, dysuria, no musculoskeletal complaints, no strokes or seizures, no skin lesions. EXAMINATION: 131/77 mmHg no JVD normal heart sounds occasionally irregular on account of nonsustained VT Breath sounds are clear no rhonchi no crackles Heart sounds S1 and S2 are normal no murmurs Abdomen soft REVIEW OF LABS, ECG & MEDICAL DATA Normal electrolytes Normal TSH
[2022-04-27] MEDS ORDERED: ACETAMINOPHEN TAB 325 MG TAB PO PRN (18:59)
[2022-04-27] MEDS ORDERED: ACETAMINOPHEN IV (For NPO) 1,000 MG in EMPTY BAG 1 BAG IVPB ONE (18:59)
[2022-04-27] MEDS ORDERED: HYDROmorphone 0.5 MG/0.5 ML SYRINGE IVP PRN (19:00)
[2022-04-27] MEDS: LOSARTAN 50 MG TAB PO SCH (19:10)
--- NOTE | 2022-04-27 19:12 | P.EPPROC ---
- EP Procedure Note Electrophysiology Procedure Note: Diagnoses Recurrent nonsustained ventricular tachycardia, symptomatic Left bundle branch block with a notch on the downslope of the QRS, upright in lead 1 and lead to Upright in aVF biphasic in lead 3 Late transition in the precordial leads MDI greater than 70%, QRS width 130 ms Details Patient was brought to the EP lab in a fasting state. Written informed consent was obtained prior to the procedure. Venous sheaths were placed in the right left femoral veins did diagnostic cath was placed in the high right atrium and His bundle area and in the right ventricle Intracardiac echo catheter placed Mapping and ablation catheter placed The patient was experiencing runs of nonsustained VT as well as PVCs Mild sedation was provided by CUT OFF SAWYER Sinus cycle length 970 ms, NV interval 189 ms, QRS 89 ms and QT 419 ms AH 67 and HV 48 ms Sinus recovery times at 600, 500 400 ms were 1269, 1269 and 975 ms AV node Wenckebach block 560 ms VA Wenckebach block 410 ms Patient was fairly awake to the procedure Intracardiac echocardiography was performed Tricuspid valve the aortic root and the cusps and the right ventricle and the RVOT were mapped A mapping and ablation catheter was placed in the right ventricle The His bundle was tagged The right bundle was tagged the distal His bundle heading towards the penetrating bundle was tagged The patient had short runs of nonsustained VT and was having PVCs, clinical morphology frequently We mapped the PVCs that had a 95% matched to the clinical PVC The PVCs were mapped to the distal His bundle area just above it, 5.7 mm away from At the best and earliest site the bipolar electrogram was 16 ms earlier than the onset of the PVC The unipolar electrogram was sharply negative and equally early The pacemap was not perfect at this site, consistent with a deep VT focus in juxtaposition to the distal His bundle All catheters were removed Hemostasis achieved with Vascade Ablation was not performed given the high risk for AV block at the site Plan This was discussed the patient We will start flecainide 100 mg twice daily for suppressive therapy We will stop carvedilol given the abnormal AV node function Increase losartan to 50 mrem twice daily Continue inpatient monitoring on telemetry on flecainide The other option is sotalol but at this time since the patient is familiar with the use of flecainide we will start with flecainide as suppressive therapy The other option is with a His bundle lead for distal His bundle conduction sys tem pacing with this screw-in lead This may result in mechanical ablation of the site if screwed in exactly at the site of origin of the PVCs
[2022-04-27] MEDS: SODIUM CHLORIDE 0.9% 1,000 ML IV SCH (19:22)
[2022-04-27 19:57] LABS: Chol/HDL Ratio 2.67 Ratio; LDL Cholesterol,Calculated 39.8 mg/dL (0.0-131.0); VLDL Calculation 13.96 mg/dL (5.00-40.00)
[2022-04-27] MEDS: FLECAINIDE 50 MG TAB PO SCH (20:27)
[2022-04-27] MEDS: diazePAM 5 MG TAB PO PRN (22:36)
[2022-04-28 08:57] LABS: HCT 48.5 % (39.0-53.0); HGB 16.2 gm/dL (13.0-17.5); MCH 34.3 pg (25.0-35.0); MCHC 33.5 g/dL (31.0-37.0); MCV 102.4 fL (80.0-100.0); Macrocytosis Slight; Mean Platelet Volume 9.5; Platelet Count 110 k/uL (150-450); RBC 4.73 m/uL (4.30-5.90); RDW 13.2 % (11.5-15.5); WBC 7.9 k/uL (3.8-10.6)
[2022-04-28] MEDS: RIVAROXABAN 20 MG TAB PO SCH (09:03)
[2022-04-28] MEDS: LOSARTAN 50 MG TAB PO SCH ×2 (09:03→20:43)
[2022-04-28] MEDS: ATORVASTATIN 20 MG TAB PO SCH (09:03)
[2022-04-28] MEDS: allopurinoL 300 MG TAB PO SCH (09:03)
[2022-04-28] MEDS: MULTIVITAMINS, THERA 1 EACH TAB PO SCH (09:03)
[2022-04-28] MEDS: FLECAINIDE 50 MG TAB PO SCH ×2 (09:04→20:43)
[2022-04-28 09:19] LABS: Albumin 4.1 g/dL (3.5-5.0); Calcium 8.9 mg/dL (8.4-10.2); Potassium 4.1 mmol/L (3.5-5.1); Total Bilirubin 0.8 mg/dL (0.2-1.3); Total Protein 6.5 g/dL (6.3-8.2)
--- NOTE | 2022-04-28 11:53 | P.PN ---
Subjective Progress Note Date: 04/28/22 Patient is a 81-year-old male with past medical history significant for paroxysmal atrial fibrillation as well as nonsustained ventricular tachycardia on flecainide, hypertension who presented to the ER because of palpitations that started this morning. Patient follows up with EP Dr nelson who was seen 3 days ago in the office and he had been having PVCs and apparently there was concern for pericarditis. Patient was instructed to stop flecainide and he was started on colchicine. Patient woke up this morning with palpitation, it was associated with shortness of breath ,denies any chest pain at that time. He had no loss of consciousness. Because of the shortness of breath and the persistence symptoms, patient checked a rhythm strip at home and found that he had V. tach around 25 beats. Because of persistent palpitation, patient became concerned and came to the ER of [facility]. In the ER initial EKG showed sinus rhythm with frequent PVCs. Telemetry did showed patient to have episodes of nonsustained V. tach.Chest x-ray no acute cardio pulmonary disease Initial lab work showed white count of 6.2, hemoglobin of 17.6, platelet count 125, sodium 143, potassium 4.5, chloride 107, carbonate 25, anion gap 11, BUN 20, creatinine 0.99. Patient was admitted to hospitalist service for further evaluation and treatment 04/27. Patient seen and examined. Currently laying comfortably in the bed. Currently nothing by mouth undergoing for EP procedure today. Denies any shortness of breath at this time. Did have episode of palpitations over night 04/28. Patient seen and examined. Patient EP study done yesterday. States he has been ambulating the hallways. Complaining of occasional palpitations. Vital signs stable REVIEW OF SYSTEMS: CONSTITUTIONAL: No fever, no malaise,. CARDIOVASCULAR: No chest pain, no syncope. PULMONARY: No shortness of breath, no cough, GASTROINTESTINAL: No diarrhea, no nausea, no vomiting, no abdominal pain. NEUROLOGICAL: No headaches, no weakness, PHYSICAL EXAMINATION: GENERAL: The patient is alert and oriented x3, not in any acute distress. Well developed, well nourished. HEENT: Pupils are round and equally reacting to light. EOMI. No scleral icterus. No conjunctival pallor. Normocephalic, atraumatic. No pharyngeal erythema. No thyromegaly. CARDIOVASCULAR: S1 and S2 present. No murmurs, rubs, or gallops. PULMONARY: Chest is clear to auscultation, no wheezing or crackles. ABDOMEN: Soft, nontender, nondistended, normoactive bowel sounds. No palpable organomegaly. MUSCULOSKELETAL: No joint swelling or deformity. EXTREMITIES: No cyanosis, clubbing, or pedal edema. NEUROLOGICAL: Gross neurological examination did not reveal any focal deficits. SKIN: No rashes. Assessment and plan Nonsustained ventricular tachycardia verses aberrancy with wide QRS Paroxysmal atrial fibrillation status post cryoablation Hypertension Peripheral vascular disease Plan Monitor vital signs Monitor CBC Continue telemetry monitoring. Monitor troponins Status post EP study, ablation was not performed given the high risk of AV block since focus is close to his bundle Patient started on flecainide Coreg discontinue Continue his Xarelto Follow-up EP recommendations Objective - Vital Signs Vital signs: Vital Signs Temp 97.6 F 04/28/22 11:28 Pulse 82 04/28/22 11:28 Resp 15 04/28/22 11:28 BP 130/78 04/28/22 11:28 Pulse Ox 96 04/28/22 11:28 FiO2 Intake & Output 04/27/22 04/28/22 04/28/22 18:59 06:59 18:59 Intake Total 367 180 Balance 367 180 Intake: IV 367 Oral 180 Other: Voiding Method Toilet Toilet Toilet # Voids 1 3 - Labs CBC & Chem 7: 04/28/22 08:29 04/28/22 08:29 Labs: Abnormal Lab Results - Last 24 Hours (Table) 04/27/22 04/28/22 04/28/22 Range/Units 06:45 08:29 08:29 MCV 102.4 H (80.0-100.0) fL Plt Count 110 L (150-450) k/uL Glucose 150 H (74-99) mg/dL HDL Cholesterol 32.30 L (40.00-60.00) mg/dL
--- NOTE | 2022-04-28 12:19 | P.PN ---
Subjective Progress Note Date: 04/28/22 History of present illness: This is an 81-year-old male patient of Dr. Messer with past medical history for paroxysmal atrial fibrillation as well as nonsustained ventricular tachycardia on flecainide, failed multaq status post atrial fibrillation ablation 3. Patient was recently seen [address] Messer in the office and he had been having PVCs and apparently there was concern for pericarditis. Patient was instructed to stop flecainide and he was started on colchicine. Patient decided to wean himself off flecainide and continue to take one dose in the evening for the past couple days. He also chose to increase his Coreg last 2 mornings. Regarding the cold consent. Patient took half dose for the past 2 days. Patient has been experiencing frequent PVCs but this morning he had persistent sensation palpitations and shortness of breath while he was resting in bed. He felt like his balance was a little off but not truly lightheaded or dizzy. He had no loss of consciousness. Because of the shortness of breath and the persistence symptoms, patient checked a rhythm strip at home and found that he had V. tach around 25 beats. EKG #1 sinus rhythm with rare PVCs, #2 sinus rhythm with run of V. tach 8 beats Chest x-ray no acute cardio pulmonary disease CBC unremarkable. INR 1.3. Potassium 4.5, BUN 20 creatinine 0.99. Magnesium 1.9. Troponin negative 1 04/27 Patient has been seen by Dr. Messer with plan for EP study cardioversion and possible ablation today. Note that Coreg dose was decreased by Dr. Messer. Patient is having runs of what appears to be V. tach with any activity. Blood pressures 127/87, pulse ox 94% on room air. Potassium 3.9, BUN 22 creatinine 1.05. 04/28 Yesterday, patient underwent A&P study and mapping revealed PVCs mapped to the distal His bundle consistent with deep VT focus juxtaposition to the distal his bundle and ablation was not performed due to high risk for AV block at the site. Patient states that he did well last evening and early this morning but after walking around in his room and to the bathroom he was feeling PVCs. Heart rate has been in the 60s to 80s, blood pressure 130/78. Sodium 138, potassium 4.1 BUN [address] Messer has placed the patient on flecainide 100 mg every 12 hours, discontinued Coreg and increase losartan to 50 mg twice daily. Physical examination: Gen: This is and 81-year-old male. He is resting on the ER stretcher and appears to be comfortable and in no acute distress Vital signs: reviewed HEENT: Head is atraumatic, normocephalic. Pupils equal, round. Sclerae is anicteric. NECK: Supple. No JVD. No lymphadenopathy. No thyromegaly. LUNGS: Clear to auscultation. No wheezes or rhonchi. No intercostal retractions. HEART: Irregular rate and rhythm. No murmur. ABDOMEN: Soft. Bowel sounds are present. No masses. No tenderness. EXTREMITIES: No pedal edema. No calf tenderness. NEUROLOGICAL: Patient is awake, alert and oriented x3. Cranial nerves 2 through 12 are grossly intact. Assessment Nonsustained ventricular tachycardia and frequent PVCs Paroxysmal atrial fibrillation status post cryoablation Hypertension Peripheral vascular disease Plan Continue flecainide 100 mg twice daily Coreg discontinued Increase losartan to 50 mg twice daily Continue patient on Xarelto 20 mg daily Continue telemetry monitoring another 24 hours Further recommendations to follow based upon clinical course Nurse practitioner note has been reviewed, I agree with documented findings and plan of care. Patient was seen and examined. Objective - Vital Signs Vital signs: Vital Signs Temp 98.0 F 04/28/22 08:00 Pulse 66 04/28/22 08:00 Resp 16 04/28/22 08:00 BP 131/72 04/28/22 08:00 Pulse Ox 96 04/28/22 08:00 FiO2 Intake & Output 04/27/22 04/28/22 04/28/22 18:59 06:59 18:59 Intake Total 367 Balance 367 Intake: IV 367 Other: Voiding Method Toilet Toilet # Voids 1 3 - Labs CBC & Chem 7: 04/28/22 08:29 04/28/22 08:29 Labs: Abnormal Lab Results - Last 24 Hours (Table) 04/27/22 Range/Units 06:45 HDL Cholesterol 32.30 L (40.00-60.00) mg/dL
[2022-04-28] MEDS ORDERED: MAGNESIUM HYDROXIDE 2,400 MG/10 ML CUP PO PRN (16:05)
[2022-04-28] MEDS: diazePAM 5 MG TAB PO PRN (20:43)
[2022-04-28] MEDS: SENNOSIDES-DOCUSATE SODIUM 1 EACH TAB PO SCH (20:51)
[2022-04-29 07:12] LABS: Basophils % (A) 0 %; Eosinophils # (A) 0.2 k/uL (0-0.7); Eosinophils % (A) 3 %; HCT 50.5 % (39.0-53.0); HGB 16.8 gm/dL (13.0-17.5); Lymphocytes % (A) 13 %; MCH 34.1 pg (25.0-35.0); MCHC 33.3 g/dL (31.0-37.0); MCV 102.4 fL (80.0-100.0); Macrocytosis Slight; Mean Platelet Volume 9.3; Monocytes # (A) 0.8 k/uL (0-1.0); Monocytes % (A) 11 %; Neutrophils # (A) 5.3 k/uL (1.3-7.7); Neutrophils % (A) 69 %; Platelet Count 107 k/uL (150-450); RBC 4.93 m/uL (4.30-5.90); RDW 13.1 % (11.5-15.5); WBC 7.6 k/uL (3.8-10.6)
[2022-04-29 07:23] LABS: Albumin 4.3 g/dL (3.5-5.0); Calcium 9.3 mg/dL (8.4-10.2); Potassium 4.4 mmol/L (3.5-5.1); Total Bilirubin 1.1 mg/dL (0.2-1.3); Total Protein 6.8 g/dL (6.3-8.2)
[2022-04-29 08:55] VITALS: RESP 16; TEMP 97.6
[2022-04-29] MEDS: MULTIVITAMINS, THERA 1 EACH TAB PO SCH (08:56)
[2022-04-29] MEDS: RIVAROXABAN 20 MG TAB PO SCH (08:56)
[2022-04-29] MEDS: LOSARTAN 50 MG TAB PO SCH (08:56)
[2022-04-29] MEDS: FLECAINIDE 50 MG TAB PO SCH (08:56)
[2022-04-29] MEDS: SENNOSIDES-DOCUSATE SODIUM 1 EACH TAB PO SCH (08:56)
[2022-04-29] MEDS: allopurinoL 300 MG TAB PO SCH (08:56)
[2022-04-29] MEDS: ATORVASTATIN 20 MG TAB PO SCH (08:56)
--- NOTE | 2022-04-29 11:21 | P.PN ---
Subjective Progress Note Date: 04/29/22 History of present illness: This is an 81-year-old male patient of Dr. Messer with past medical history for paroxysmal atrial fibrillation as well as nonsustained ventricular tachycardia on flecainide, failed multaq status post atrial fibrillation ablation 3. Patient was recently seen [address] Messer in the office and he had been having PVCs and apparently there was concern for pericarditis. Patient was instructed to stop flecainide and he was started on colchicine. Patient decided to wean himself off flecainide and continue to take one dose in the evening for the past couple days. He also chose to increase his Coreg last 2 mornings. Regarding the cold consent. Patient took half dose for the past 2 days. Patient has been experiencing frequent PVCs but this morning he had persistent sensation palpitations and shortness of breath while he was resting in bed. He felt like his balance was a little off but not truly lightheaded or dizzy. He had no loss of consciousness. Because of the shortness of breath and the persistence symptoms, patient checked a rhythm strip at home and found that he had V. tach around 25 beats. EKG #1 sinus rhythm with rare PVCs, #2 sinus rhythm with run of V. tach 8 beats Chest x-ray no acute cardio pulmonary disease CBC unremarkable. INR 1.3. Potassium 4.5, BUN 20 creatinine 0.99. Magnesium 1.9. Troponin negative 1 04/27 Patient has been seen by Dr. Messer with plan for EP study cardioversion and possible ablation today. Note that Coreg dose was decreased by Dr. Messer. Patient is having runs of what appears to be V. tach with any activity. Blood pressures 127/87, pulse ox 94% on room air. Potassium 3.9, BUN 22 creatinine 1.05. 04/28 Yesterday, patient underwent A&P study and mapping revealed PVCs mapped to the distal His bundle consistent with deep VT focus juxtaposition to the distal his bundle and ablation was not performed due to high risk for AV block at the site. Patient states that he did well last evening and early this morning but after walking around in his room and to the bathroom he was feeling PVCs. Heart rate has been in the 60s to 80s, blood pressure 130/78. Sodium 138, potassium 4.1 BUN [address] Messer has placed the patient on flecainide 100 mg every 12 hours, discontinued Coreg and increase losartan to 50 mg twice daily. 04/29 Patient states he is not feeling palpitations/PVCs. Take monitor is sinus rhythm. Heart rate is regular. He has been maintained on flecainide at 100 mg twice daily. Heart rate has been in the 70s and 80s, blood pressure 131/83. Repeat blood work reveals potassium 4.4, BUN 14 and creatinine 0.97. Physical examination: Gen: This is and 81-year-old male. He is ambulating in his room, appears to be comfortable and in no acute distress Vital signs: reviewed HEENT: Head is atraumatic, normocephalic. Pupils equal, round. Sclerae is anicteric. NECK: Supple. No JVD. LUNGS: Clear to auscultation. No wheezes or rhonchi. No intercostal retractions. HEART: Regular rate and rhythm. No murmur. EXTREMITIES: No pedal edema. No calf tenderness. NEUROLOGICAL: Patient is awake, alert and oriented x3. Assessment Nonsustained ventricular tachycardia and frequent PVCs Paroxysmal atrial fibrillation status post cryoablation Hypertension Peripheral vascular disease Plan Continue flecainide 100 mg twice daily Coreg discontinued Increase losartan to 50 mg twice daily Continue patient on Xarelto 20 mg daily Patient is cleared for discharge home today. Follow-up with Dr. Messer as an outpatient. Nurse practitioner note has been reviewed, I agree with documented findings and plan of care. Patient was seen and examined. Objective - Vital Signs Vital signs: Vital Signs Temp 98.6 F 04/29/22 04:00 Pulse 77 04/29/22 04:00 Resp 18 04/29/22 04:00 BP 128/78 04/29/22 04:00 Pulse Ox 95 04/29/22 04:00 FiO2 Intake & Output 04/28/22 04/29/22 04/29/22 18:59 06:59 18:59 Intake Total 540 240 Balance 540 240 Intake: Oral 540 240 Other: Voiding Method Toilet Toilet # Voids 2 1 - Labs CBC & Chem 7: 04/29/22 06:57 04/29/22 06:57 Labs: Abnormal Lab Results - Last 24 Hours (Table) 04/28/22 04/28/2223 Range/Units 08:29 08:29 06:57 MCV 102.4 H 102.4 H (80.0-100.0) fL Plt Count 110 L 107 L (150-450) k/uL Glucose 150 H (74-99) mg/dL 04/29/22 Range/Units 06:57 MCV (80.0-100.0) fL Plt Count (150-450) k/uL Glucose 115 H (74-99) mg/dL
--- NOTE | 2022-04-29 12:40 | P.DS ---
Providers Date of admission: 04/26/22 11:27 Expected date of discharge: 04/29/22 Attending physician: Taurus Rosa Consults: 04/26/22 11:25 Consult Physician Routine Consulting Provider: Hernandez Messer Consult Reason/Comments: nonsustained VT Do you want consulting provider notified?: Yes Primary care physician: [facility] Course: Discharge diagnoses; Nonsustained ventricular tachycardia Frequent PVCs Paroxysmal atrial fibrillation status post cryoablation Hypertension Peripheral vascular disease Hospital course; Patient is a 81-year-old male with past medical history significant for paroxysmal atrial fibrillation as well as nonsustained ventricular tachycardia on flecainide, hypertension who presented to the ER because of palpitations that started this morning. Patient follows up with EP Dr messer who was seen 3 days ago in the office and he had been having PVCs and apparently there was concern for pericarditis. Patient was instructed to stop flecainide and he was started on colchicine. Patient woke up this morning with palpitation, it was associated with shortness of breath ,denies any chest pain at that time. He had no loss of consciousness. Because of the shortness of breath and the persistence symptoms, patient checked a rhythm strip at home and found that he had V. tach around 25 beats. Because of persistent palpitation, patient became concerned and came to the ER of [facility]. In the ER initial EKG showed sinus rhythm with frequent PVCs. Telemetry did showed patient to have episodes of nonsustained V. tach.Chest x-ray no acute cardio pulmonary disease Initial lab work showed white count of 6.2, hemoglobin of 17.6, platelet count 125, sodium 143, potassium 4.5, chloride 107, carbonate 25, anion gap 11, BUN 20, creatinine 0.99. Patient was admitted to hospitalist service for further evaluation and treatment 04/27. Patient seen and examined. Currently laying comfortably in the bed. Currently nothing by mouth undergoing for EP procedure today. Denies any shortness of breath at this time. Did have episode of palpitations over night 04/28. Patient seen and examined. Patient EP study done yesterday. States he has been ambulating the hallways. Complaining of occasional palpitations. Vital signs stable 04/29. Patient seen by cardiology, and has been cleared to discharge on flec ainide, outpatient follow-up with EP PHYSICAL EXAMINATION: GENERAL: The patient is alert and oriented x3, not in any acute distress. Well developed, well nourished. HEENT: Pupils are round and equally reacting to light. EOMI. No scleral icterus. No conjunctival pallor. Normocephalic, atraumatic. No pharyngeal erythema. No thyromegaly. CARDIOVASCULAR: S1 and S2 present. No murmurs, rubs, or gallops. PULMONARY: Chest is clear to auscultation, no wheezing or crackles. ABDOMEN: Soft, nontender, nondistended, normoactive bowel sounds. No palpable organomegaly. MUSCULOSKELETAL: No joint swelling or deformity. EXTREMITIES: No cyanosis, clubbing, or pedal edema. NEUROLOGICAL: Gross neurological examination did not reveal any focal deficits. SKIN: No rashes. Patient Condition at Discharge: Stable Plan - Discharge Summary Discharge Rx Participant: Yes New Discharge Prescriptions: New Flecainide [Tambocor] 100 mg PO Q12HR #60 tab Continue Rivaroxaban [Xarelto] 20 mg PO DAILY Multivit-Min/FA/Lycopen/Lutein [Centrum Silver Men Tablet] 1 tab PO DAILY allopurinoL [Zyloprim] 300 mg PO DAILY Naproxen [Naprosyn] 375 mg PO Q12HR PRN PRN Reason: Pain diazePAM [Valium] 5 mg PO HS PRN PRN Reason: Insomnia Rosuvastatin [Crestor] 10 mg PO DAILY Losartan [Cozaar] 50 mg PO BID Lansoprazole 30 mg PO DAILY PRN PRN Reason: Heartburn Discontinued carvediloL [Coreg] 3.125 mg PO BID Colchicine 0.6 mg PO DAILY Discharge Medication List Rivaroxaban [Xarelto] 20 mg PO DAILY 05/09/15 [History] Multivit-Min/FA/Lycopen/Lutein [Centrum Silver Men Tablet] 1 tab PO DAILY 11/06/18 [History] allopurinoL [Zyloprim] 300 mg PO DAILY 11/06/18 [History] Losartan [Cozaar] 50 mg PO BID 09/02/20 [History] Naproxen [Naprosyn] 375 mg PO Q12HR PRN 09/04/20 [History] Rosuvastatin [Crestor] 10 mg PO DAILY 02/02/22 [History] diazePAM [Valium] 5 mg PO HS PRN 02/02/22 [History] Lansoprazole 30 mg PO DAILY PRN 04/26/22 [History] Flecainide [Tambocor] 100 mg PO Q12HR #60 tab 04/29/22 [Rx] Follow up Appointment(s)/Referral(s): Hernandez Messer MD [Family Provider] - 05/06/22 11:45 am () Dagoberto Gupta MD [Primary Care Provider] - 1-2 days (Pt to call office for appointment per his request.) Patient Instructions/Handouts: Cardiac Ablation (DC) Discharge Disposition: HOME SELF-CARE
[2022-04-29 13:41] VITALS: BP 145/82; PULSE 65
== END 2022-04-29 13:50 | disposition home or self-care (01) | DRG 274 ==
LOC: EC 08:49 → 3SCARD 11:27
PROVIDERS: ADMIT Hospitalist; ATTEND Hospitalist
PROC: B24BZZZ Ultrasonography of Heart with Aorta (ICD-10-PCS; 2022-04-27)
PROC: 4A023FZ Measurement of Cardiac Rhythm, Percutaneous Approach (ICD-10-PCS; principal; 2022-04-27 15:30)
PROC: 4A0234Z Measurement of Cardiac Electrical Activity, Percutaneous Approach (ICD-10-PCS; 2022-04-27 15:30)
PROC: 02K83ZZ Map Conduction Mechanism, Percutaneous Approach (ICD-10-PCS; 2022-04-27 15:30)
DX: I47.20 Ventricular tachycardia, unspecified (principal); I31.9 Disease of pericardium, unspecified; I44.1 Atrioventricular block, second degree; I10 Essential (primary) hypertension; I73.9 Peripheral vascular disease, unspecified; I49.3 Ventricular premature depolarization; I48.0 Paroxysmal atrial fibrillation; N40.0 Benign prostatic hyperplasia without lower urinary tract symptoms; Z96.643 Presence of artificial hip joint, bilateral; G47.30 Sleep apnea, unspecified; I44.7 Left bundle-branch block, unspecified; I25.10 Atherosclerotic heart disease of native coronary artery without angina pectoris; Z53.8 Procedure and treatment not carried out for other reasons; Z79.899 Other long term (current) drug therapy; Z79.01 Long term (current) use of anticoagulants; Z88.2 Allergy status to sulfonamides; Z91.048 Other nonmedicinal substance allergy status; Z87.891 Personal history of nicotine dependence; Z82.49 Family history of ischemic heart disease and other diseases of the circulatory system
CPT/HCPCS: 36415; 71046; 80048; 80053; 80061; 83735; 84443; 84484; 85025; 85027; 85610; 85730; 93005; 93613; 93620; 93662; 94760; 96374; 99285

== ENCOUNTER → 2022-05-11 | Outpatient (CLI) | payer MEDICARE ==
[2022-05-11 17:04] LABS: Magnesium 1.9 mg/dL (1.5-2.4)
[2022-05-11 17:11] LABS: African American GFR (CKD) 62.6 (60.0-200.0); Anion Gap 16.6 mmol/L (10.00-18.00); BUN/Creat Ratio 14.96 Ratio (12.00-20.00); Blood Urea Nitrogen 18.7 mg/dL (9.0-27.0); Calcium 9.8 mg/dL (8.7-10.3); Carbon Dioxide 23.2 mmol/L (20.0-27.5); Potassium 4.4 mmol/L (3.5-5.5)
== END | disposition home or self-care (01) ==
LOC: LABWHC1 10:20
PROVIDERS: ATTEND Internal Medicine Interventional Cardiology
DX: I10 Essential (primary) hypertension (principal)
CPT/HCPCS: 36415; 80048; 83735

== ENCOUNTER → 2022-09-30 | Outpatient (CLI) | payer MEDICARE ==
[2022-09-30 12:36] LABS: African American GFR (CKD) >90 (>60 ml/min/1.73 sqM); Blood Urea Nitrogen 18 mg/dL (9-20); Non-African American GFR(CKD) 80 (>60 ml/min/1.73 sqM)
--- NOTE | 2022-09-30 14:09 | CT ---
EXAMINATION TYPE: CT abdomen pelvis w con DATE OF EXAM: 09/30/2022 COMPARISON: 07/10/2021 HISTORY: abdominal pain, diverticulitis CT DLP: 1259.5 mGycm CONTRAST: CT scan of the abdomen and pelvis is performed with Oral Contrast and with IV Contrast, patient injec griffin with 100 mL of Isovue 300. FINDINGS: LUNG BASES-: No visible nodule. No infiltrate. Small sliding-type hiatal hernia noted. LIVER/GB: No calcified gallstones. No space occupying hepatic lesion. Biliary tree is of normal ca liber. PANCREAS: No inflammation. No distinct mass. SPLEEN: No splenic enlargement. No lesion seen. ADRENALS: No nodule. No thickening. KIDNEYS/BLADDER: No hydronephrosis. No nephrolithiasis. 1.5 cm simple cyst mid pole left kidney. Ur inary bladder grossly unremarkable. BOWEL: Normal appendix. Normal bowel caliber. No inflammation. Scattered sigmoid diverticulosis wit hout diverticulitis. GENITAL ORGANS: No gross abnormality. LYMPH NODES: No greater than 1cm abdominal or pelvic lymph nodes are appreciated. AORTA: No significant abnormality. OSSEOUS STRUCTURES: Bilateral hip prosthesis are noted with streak limiting artifact. OTHER: No significant additional abnormality is seen. IMPRESSION: 1. Diverticulosis without diverticulitis. 2. Small sliding-type hiatal hernia.
== END | disposition home or self-care (01) ==
LOC: RADCTMAIN 11:52
PROVIDERS: ATTEND Internal Medicine Geriatric Medicine
DX: K44.9 Diaphragmatic hernia without obstruction or gangrene (principal); K57.30 Diverticulosis of large intestine without perforation or abscess without bleeding; R10.84 Generalized abdominal pain
CPT/HCPCS: 82565; 84520; 74177; 36415; Q9967

== ENCOUNTER 2023-02-07 13:37 | Day surgery (SDC) | payer MEDICARE ==
[2023-02-03 11:31] VITALS: BMI 29.7
[~2023-02-07 13:37] MED LIST changes: +LIDOCAINE 1% (10MG/ML) FOR IV START INTRADERMA PRN; -SODIUM CHLORIDE 0.9% 1,000 ML IV SCH
[2023-02-07 14:25] VITALS: TEMP 98.1
[2023-02-07] MEDS ORDERED: LIDOCAINE 1% INJ 10MG/ML (20 ML MDV) ONE (14:33)
[2023-02-07] MEDS ORDERED: PROPOFOL 10 MG/ML 20 ML VIAL IV ONE (14:33)
--- NOTE | 2023-02-07 14:38 | P.GSHP ---
History of Present Illness H&P Date: 02/07/23 Chief Complaint: Screening colonoscopy, history of diverticulitis This 82-year-old male presents today for colonoscopy. Patient's had multiple tacks diverticula is last year. His recent CAT scan shows evidence of diverticulosis and a hiatal hernia. Past Medical History Past Medical History: Atrial Fibrillation, GERD/Reflux, Hypertension, Osteoarthritis (OA), Prostate Disorder, Sleep Apnea/CPAP/BIPAP Additional Past Medical History / Comment(s): CPAP use. Hx kidney stones. Benign prostatic hypertrophy, spondylolisthesis and sciatica right leg, gout. History of Any Multi-Drug Resistant Organisms: None Reported Past Surgical History: Cardiac Ablation, Hernia Repair, Joint Replacement, Prostate Surgery Additional Past Surgical History / Comment(s): 4th toe left foot surgery, bilateral hip replacement, TURP, ventral and umbilical hernia repair, cardiac ablation X3, cyst removed from right eye. Past Anesthesia/Blood Transfusion Reactions: No Reported Reaction Past Psychological History: No Psychological Hx Reported Smoking Status: Former smoker Past Alcohol Use History: None Reported Additional Past Alcohol Use History / Comment(s): Smoked for 2 yrs in the 60's. Past Drug Use History: None Reported - Past Family History Mother Family Medical History: No Reported History Additional Family Medical History / Comment(s): Mother at age 78 with history of rheumatic heart disease and from complications of this. Father Family Medical History: Hypertension Additional Family Medical History / Comment(s): Father at age 96 with history of hypertension. Brother(s) Family Medical History: Myocardial Infarction (OK) Additional Family Medical History / Comment(s): One brother at age 48 from a myocardial infarction with history of smoking. Medications and Allergies Home Medications Medication Instructions Recorded Confirmed Type Rivaroxaban [Xarelto] 20 mg PO DAILY 05/09/15 02/07/23 History Mv-Min/Folic/K1/Lycopen/Lutein 1 tab PO DAILY 11/06/18 02/07/23 History [Centrum Silver Men Tablet] allopurinoL [Zyloprim] 300 mg PO DAILY 11/06/18 02/07/23 History Rosuvastatin [Crestor] 10 mg PO DAILY 02/02/22 02/07/23 History diazePAM [Valium] 5 mg PO HS PRN 02/02/22 02/07/23 History Lansoprazole 30 mg PO DAILY PRN 04/26/22 02/07/23 History Valsartan 320 mg PO QAM 02/03/23 02/07/23 History Allergies Allergy/AdvReac Type Severity Reaction Status Date / Time Sulfa (Sulfonamide Allergy Rash/Hives Verified 02/07/23 13:53 Antibiotics) adhesive on monitor stickers Allergy irritated Uncoded 02/07/23 13:53 skin,itching Surgical - Exam Vital Signs Temp Pulse Resp BP Pulse Ox 98.1 F 67 18 175/85 97 02/07/23 14:00 02/07/23 14:00 02/07/23 14:00 02/07/23 14:00 02/07/23 14:00 - General well developed, well nourished, no distress - Eyes PERRL - ENT normal pinna - Respiratory normal expansion - Cardiovascular Rhythm: regular - Abdomen Abdomen: soft, non tender Assessment and Plan Assessment: History diverticulitis. We'll perform colonoscopy.
--- NOTE | 2023-02-07 14:51 | P.OP ---
Date of Procedure: 02/07/23 Preoperative Diagnosis: History of diverticulitis Postoperative Diagnosis: Severe diverticulosis and sigmoid colon Procedure(s) Performed: Colonoscopy Anesthesia: MAC Surgeon: Jorge Alberto Herring Pathology: none sent Condition: stable Disposition: PACU Description of Procedure: The patient's placed on the endoscopy table in the lateral position. IV sedation. Digital rectal exam was performed. This revealed no ebonized. The flexible colonoscope was then placed patient anus and passed throughout the ent martinez colon. The ileocecal valve was visually is. The cecum, ascending and transverse colon appeared normal. In the descending colon there is mild diverticular changes. Scope back the sigmoid colon there is extensive diverticular changes seen. There is no evidence of acute diverticulitis. Scope was brought back the rectum and this appeared normal. Scope withdrawn for patient.
[2023-02-07 15:11] VITALS: RESP 14
[2023-02-07 15:34] VITALS: BP 136/65; PULSE 49
== END 2023-02-07 15:44 | disposition home or self-care (01) ==
LOC: ORWHC2ENDO 13:37
PROVIDERS: ATTEND Surgery
DX: K57.30 Diverticulosis of large intestine without perforation or abscess without bleeding (principal); K44.9 Diaphragmatic hernia without obstruction or gangrene; K21.9 Gastro-esophageal reflux disease without esophagitis; I10 Essential (primary) hypertension; E78.5 Hyperlipidemia, unspecified; G47.33 Obstructive sleep apnea (adult) (pediatric); N40.0 Benign prostatic hyperplasia without lower urinary tract symptoms; N42.9 Disorder of prostate, unspecified; I48.91 Unspecified atrial fibrillation; M19.90 Unspecified osteoarthritis, unspecified site; M10.9 Gout, unspecified; M43.10 Spondylolisthesis, site unspecified; M54.31 Sciatica, right side; Z79.01 Long term (current) use of anticoagulants; Z79.899 Other long term (current) drug therapy; Z87.442 Personal history of urinary calculi; Z87.891 Personal history of nicotine dependence; Z88.2 Allergy status to sulfonamides; Z88.1 Allergy status to other antibiotic agents; Z91.048 Other nonmedicinal substance allergy status; Z84.89 Family history of other specified conditions; Z98.890 Other specified postprocedural states; Z82.49 Family history of ischemic heart disease and other diseases of the circulatory system
CPT/HCPCS: 94660; J2001; J2704; G0121

== ENCOUNTER → 2023-08-25 | Outpatient (CLI) | payer MEDICARE ==
--- NOTE | 2023-08-26 09:27 | US ---
EXAMINATION TYPE: US duplex aorta DATE OF EXAM: 08/25/2023 COMPARISON: NONE CLINICAL INDICATION: Male, 82 years old with history of I71.40 ABDOMINAL AORTIC ANEURYSM, WITHOUT RUP TURE,; Ascending aorta seen on CT 2021 measuring 4.6 cm. TECHNIQUE: Multiple sonographic images of the abdominal aorta are obtained. FINDINGS: EXAM MEASUREMENTS: Abdominal Aorta: Proximal: 1.8 cm transverse proximal sagittal obscured by bowel gas. Mid: 1.7 x 1.7 cm Distal: 1.4 x 1.5 cm Bifurcation: Right Iliac: .9 x .9 cm Left Iliac: 1.1 x 1.1 cm IMPRESSION: No abdominal aortic aneurysm and no significant atheromatous plaque.
== END | disposition home or self-care (01) ==
LOC: RADUSWWP 13:04
PROVIDERS: ATTEND Internal Medicine Geriatric Medicine
DX: I71.40 Abdominal aortic aneurysm, without rupture, unspecified (principal)
CPT/HCPCS: 93979

== ENCOUNTER → 2023-10-11 | Outpatient (CLI) | payer MEDICARE ==
[2023-10-11 15:38] LABS: HGB 16.1 g/dL (13.0-17.0); MCH 34.8 pg (27.0-32.0); MCHC 34.3 g/dL (32.0-37.0); MCV 101.5 FL (80.0-97.0); Mean Platelet Volume 10.9 FL (9.5-12.2); NRBC Per 100 WBC 0 X 10*3/uL (0.00-0.01); Platelet Count 158 X 10*3/uL (140-440); RBC 4.63 X 10*6/uL (4.40-5.60); RDW 13.4 % (11.5-14.5); WBC 8.53 X 10*3/uL (4.50-10.00)
[2023-10-11 15:39] LABS: Basophils # (A) 0.02 X 10*3/uL (0.00-0.10); Basophils % (A) 0.2 %; Eosinophils # (A) 0.01 X 10*3/uL (0.04-0.35); Eosinophils % (A) 0.1 %; Lymphocytes # (A) 0.63 X 10*3/uL (0.90-5.00); Lymphocytes % (A) 7.4 %; Monocytes # (A) 0.67 X 10*3/uL (0.20-1.00); Monocytes % (A) 7.9 %; Neutrophils # (A) 7.15 X 10*3/uL (1.80-7.70); Neutrophils % (A) 83.8 %
[2023-10-11 19:09] LABS: ALT 64 U/L (10-49); AST 32 U/L (14-35); Albumin 4.7 g/dL (3.8-4.9); Albumin/Globulin Ratio 2.14 Ratio (1.60-3.17); Alkaline Phosphatase 65 U/L (41-126); BUN/Creat Ratio 15.67 Ratio (12.00-20.00); Blood Urea Nitrogen 14.1 mg/dL (9.0-27.0); Calcium 9.6 mg/dL (8.7-10.3); Carbon Dioxide 23.3 mmol/L (21.6-31.8); Chloride 107 mmol/L (96-109); Globulin 2.2 g/dL (1.6-3.3); Glucose 106 mg/dL (70-110); Potassium 4.9 mmol/L (3.5-5.5); Sodium 142 mmol/L (135-145); Total Bilirubin 0.3 mg/dL (0.3-1.2); Total Protein 6.9 g/dL (6.2-8.2)
== END | disposition home or self-care (01) ==
LOC: LABWHC1 11:47
PROVIDERS: ATTEND Internal Medicine Geriatric Medicine
DX: D69.6 Thrombocytopenia, unspecified (principal); R94.5 Abnormal results of liver function studies
CPT/HCPCS: 36415; 80053; 85025